=== PATIENT | female | born 1970 | race Caucasian/White ===

== ENCOUNTER → 2016-07-21 | Outpatient (CLI) | payer BC ==
[~2016-07-21] MED LIST: ATOR-22 PO; CHOL20009 PO; CYAN100020 PO; GLC500 PO; INSPMPHMLG SQ; LEVO112T4 PO; LIRA18IN SQ; LISI5TAB3 PO; LVMI SQ; MTR600X PO; MULT-506 PO; NVLNI SQ; VALA1TAB PO
== END | disposition home or self-care (01) ==
LOC: C.LABSPEC 13:41
PROVIDERS: ATTEND Dermatology
DX: B35.3 Tinea pedis (principal)

== ENCOUNTER → 2016-08-27 | Outpatient (CLI) | payer BC ==
[2016-08-27 16:47] LABS: ALT/SGPT 51 U/L (12-78); BLOOD UREA NITROGEN 11 mg/dl (7-18); BUN/CREATININE RATIO 16.6 (10-20); CALCIUM 9.1 mg/dl (8.5-10.1); CARBON DIOXIDE 25 mmol/L (21-32); CHLORIDE 104 mmol/L (98-107); CREATININE 0.67 mg/dl (0.60-1.20); GLUCOSE 233 mg/dl (70-99); SODIUM 138 mmol/L (136-145)
[2016-08-27 16:50] LABS: ALKALINE PHOSPHATASE 50 U/L (45-117); AST/SGOT 30 U/L (15-37)
[2016-08-28 06:16] LABS: ESTIMATED AVERAGE GLUCOSE 154 mg/dl; HA1C FLAG Normal (Normal)
== END | disposition home or self-care (01) ==
LOC: C.LAB 15:42
PROVIDERS: ATTEND Nurse Practitioner Adult Health
DX: I10 Essential (primary) hypertension (principal); E11.9 Type 2 diabetes mellitus without complications; M79.1 Myalgia

== ENCOUNTER → 2016-12-01 | Outpatient (CLI) | payer BC ==
[2016-12-01 10:16] LABS: ESTIMATED AVERAGE GLUCOSE 154 mg/dl; HA1C FLAG Normal (Normal)
== END | disposition home or self-care (01) ==
LOC: C.LAB 11:49
PROVIDERS: ATTEND Nurse Practitioner Adult Health
DX: E11.9 Type 2 diabetes mellitus without complications (principal); E55.9 Vitamin D deficiency, unspecified

== ENCOUNTER → 2017-03-05 | Outpatient (CLI) | payer BC ==
[2017-03-05 15:15] LABS: ALT/SGPT 36 U/L (12-78); BLOOD UREA NITROGEN 12 mg/dl (7-18); BUN/CREATININE RATIO 16.4 (10-20); CALCIUM 9.4 mg/dl (8.5-10.1); CARBON DIOXIDE 26 mmol/L (21-32); CHLORIDE 105 mmol/L (98-107); CHOLESTEROL 137 mg/dl (0-200); CREATININE 0.72 mg/dl (0.60-1.20); GLUCOSE 219 mg/dl (70-99); POTASSIUM 4.1 mmol/L (3.5-5.1); SODIUM 139 mmol/L (136-145)
[2017-03-05 15:26] LABS: ALB/GLOB RATIO 1.1 (0.9-2); ALKALINE PHOSPHATASE 51 U/L (45-117); AST/SGOT 21 U/L (15-37); CHOLESTEROL/HDL RATIO 2.9; HDL CHOLESTEROL 47 mg/dl; LDL CHOLESTEROL CALCULATED 47 mg/dl; THYROID STIMULATING HORMONE 0.586 uIu/ml (0.300-4.500); TRIGLYCERIDES 217 mg/dl (0-150); VERY LOW DENSITY LIPOPROT CALC 43 mg/dl
[2017-03-06 06:01] LABS: ESTIMATED AVERAGE GLUCOSE 151 mg/dl; HA1C FLAG Normal (Normal)
== END | disposition home or self-care (01) ==
LOC: C.LAB 11:08
PROVIDERS: ATTEND Nurse Practitioner Adult Health
DX: E11.9 Type 2 diabetes mellitus without complications (principal); E78.5 Hyperlipidemia, unspecified; E03.9 Hypothyroidism, unspecified

== ENCOUNTER → 2017-06-29 | Outpatient (CLI) | payer BC ==
[2017-06-30 06:06] LABS: HEMOGLOBIN A1C 7.5 % (4.5-5.6)
== END | disposition home or self-care (01) ==
LOC: C.LAB 10:17
PROVIDERS: ATTEND Nurse Practitioner Adult Health
DX: E11.9 Type 2 diabetes mellitus without complications (principal); E78.5 Hyperlipidemia, unspecified; E03.9 Hypothyroidism, unspecified; E55.9 Vitamin D deficiency, unspecified

== ENCOUNTER → 2017-10-27 | Outpatient (CLI) | payer BC ==
[2017-10-27 13:16] LABS: HEMOGLOBIN A1C 6.6 % (4.5-5.6)
== END | disposition home or self-care (01) ==
LOC: C.LAB 11:41
PROVIDERS: ATTEND Nurse Practitioner Adult Health
DX: I10 Essential (primary) hypertension (principal); E11.9 Type 2 diabetes mellitus without complications

== ENCOUNTER 2019-03-27 04:17 | Inpatient (IN) ==
[2019-03-27] MEDS ORDERED: KETOROLAC TROMETHAMINE 15 MG/ML VIAL IV STA (04:31)
[2019-03-27] MEDS ORDERED: METOCLOPRAMIDE HCL INJ 5 MG/ML 2 ML VIAL IV STA (04:31)
[2019-03-27] MEDS ORDERED: DiphenhydrAMINE HCL 50 MG/ML VIAL IV STA (04:31)
[2019-03-27] MEDS ORDERED: SODIUM CHLORIDE 0.9% 500 ML IV STA (04:31)
--- NOTE | 2019-03-27 04:41 | Emergency Department Note ---
History of Present Illness General Chief complaint: Kidney Stone Stated complaint: R FLANK PAIN, KIDNEY STONE History of Present Illness Maximum Pain Intensity: 8 This 48-year-old presents to the ER complaining of severe right flank and lower abdominal pain who is a known kidney stone Location: Right flank and abdomen Quality: Sharp Severity: Severe Duration: Tonight Timing: Patient was diagnosed with a kidney stone 2 weeks ago Context: Pain got much worse and patient came in Modifying factors: better with oxycodone; worse with nothing Patient saw Dr. Holloway and was told she had to stop her diet pill in order to get lithotripsy. She has a scheduled for Wednesday. Patient's pain became so severe she came in tonight. This woke her from sleep. This is her first time with a kidney stone. Patient has appointment next week to follow-up for ovarian abnormality seen on CAT scan. She had a hysterectomy. Patient denies chest pain, dyspnea, urinary symptoms, fever, chills. Home Medications Home Medications Medication Instructions Recorded Confirmed Type atorvastatin 20 mg tablet 20 mg PO HS tab 01/23/19 03/27/19 History cholecalciferol (vitamin D3) 5,000 5,000 units PO DAILY cap 01/23/19 03/27/19 History unit capsule cyanocobalamin (vit B-12) 500 mcg 500 mcg PO DAILY tab 01/23/19 03/27/19 History tablet dulaglutide 1.5 mg/0.5 mL 1.5 mg SQ WEEKLY ml 01/23/19 03/27/19 History subcutaneous pen injector insulin glargine (U-300) conc. 300 80 units SQ HS ml 01/23/19 03/27/19 History unit/mL (1.5 mL) subcutaneous pen insulin lispro (U- 100) 100 See Rx Instructions SQ .COMPLEX ml 01/23/19 03/27/19 History unit/mL subcutaneous pen levothyroxine 75 mcg tablet 75 mcg PO 6XWK tab 01/23/19 03/27/19 History lisinopril 2.5 mg tablet 2.5 mg PO QAM tab 01/23/19 03/27/19 History metformin 1,000 mg tablet 1,000 mg PO BID #1 tab 01/23/19 03/27/19 History valacyclovir 1 gram tablet 1,000 mg PO Q12H PRN tab 01/23/19 03/27/19 History insulin NPH isophane U-100 human 30 units SQ QPM #30 ml 03/10/19 03/27/19 Rx 100 unit/mL (3 mL) subcutaneous pen ibuprofen 800 mg PO Q6H PRN 03/11/19 03/27/19 History ondansetron 4 mg PO Q4H PRN #8 tab 03/11/19 03/27/19 Rx oxycodone 5 - 10 mg PO Q6H PRN #14 tab 03/11/19 03/27/19 Rx phentermine 15 mg PO QAM 03/23/19 03/27/19 History Allergies Allergy/AdvReac Type Severity Reaction Status Date / Time No Known Allergies Allergy Verified 03/27/19 05:04 Past Med/Surg History Medical History Dyslipidemia (Acute) Hypertension (Acute) Hypothyroidism (Acute) Type 2 diabetes mellitus, with long-term current use of insulin (Acute) iddm Vitamin D deficiency (Acute) Chronic back pain hx Kidney stones Sleep apnea cpap Surgical History H/O abdominoplasty and panniculectomy with incisional hernia repair History of hysterectomy History of total left hip replacement History of total right hip replacement S/P left inguinal hernia repair S/P partial hysterectomy Family History Father Diabetes Cancer Mother Hypertension Social History Preferred Language: Italian Communication Ability: Effective Display Decorator Required: No Beliefs That Will Affect Care: None marital status: Current Living Situation: Spouse current occupational status: employed Feels Safe at Home: Yes Smoking Status: Never smoker Second Hand Exposure: No ; Hx Alcohol Use: Yes Alcohol type: beer and wine Hx Substance Use: No Review of Systems All systems reviewed & are unremarkable except as noted in HPI & below Physical Exam Vital Signs Vital Signs - 24 hr 03/27/19 04:20 03/27/19 05:54 Temperature 36.8 C Temperature Source Oral Sepsis Recent Fever Within 48 Hours No Sepsis New/Unexplained Change in Mental Status No Sepsis Action Taken by Nursing No Action Required Pulse Rate 78 Pulse Rate [Finger] 64 Pulse Rhythm [Finger] Regular Pulse Strength [Finger] Normal Respiratory Rate 20 16 Respiratory Effort / Characteristics Non-Labored Spontaneous Respiratory Depth Normal Respiratory Pattern Regular Blood Pressure 161/98 H Blood Pressure [Left Radial Artery] 137/86 Blood Pressure Mean 119 Blood Pressure Mean [Left Radial Artery] 103 Pulse Oximetry 96 96 Oxygen Delivery Method Room Air Room Air VITALS: Vitals are noted on the nurse's note and reviewed by myself. Vital signs stable. GENERAL: Pleasant female who appears in pain, in no acute distress, nondiaphoretic, well-developed well-nourished. SKIN: Capillary reflex less than 2 seconds. HEENT: Normocephalic. PERRLA. EOMI. Nares patent. Mucous membranes moist. Neck is supple without nuchal rigidity. HEART: Regular rate and rhythm without murmurs gallops or rubs. LUNGS: Clear to auscultation bilaterally without wheezes, rales or rhonchi. No retractions or accessory muscle use. ABDOMEN: Positive bowel sounds x 4. Normal tympanic percussion. Soft, minimally tender suprapubic region, without masses or organomegaly. Lloyd sign negative. No guarding or rebound tenderness. No CVA tenderness MUSCULOSKELETAL: No gross musculoskeletal defects. NEURO: Patient was alert and oriented to person place and time. Normal sensation to light and sharp touch. No focal neurological deficits. Course Administered Medications Discontinued Medications Diphenhydramine HCl (Benadryl) 25 mg IV NOW STA Stop: 03/27/19 04:32 Last Admin: 03/27/19 04:56 Dose: 25 mg Documented by: [id number] Sodium Chloride (Nss) 500 mls @ 999 mls/hr IV .Q31M STA Stop: 03/27/19 05:01 Last Admin: 03/27/19 04:52 Dose: 999 mls/hr Documented by: [id number] Ketorolac Tromethamine (Toradol) 10 mg IV ONE STA Stop: 03/27/19 04:32 Last Admin: 03/27/19 04:56 Dose: 10 mg Documented by: [id number] Metoclopramide HCl (Reglan) 10 mg IV NOW STA Stop: 03/27/19 04:32 Last Admin: 03/27/19 04:56 Dose: 10 mg Documented by: [id number] Medical Decision Making Medical Records Attestation: I reviewed the patient's medical records. Home Medications Current Medication List: was personally reviewed by me Laboratory Data Attestation: I reviewed the patient's lab results. Result diagrams: 03/27/19 04:47 03/27/19 04:47 Lab Results 03/27/19 03/27/19 03/27/19 Range/Units 04:47 04:47 04:47 WBC 7.92 (4.8-10.8) K/uL RBC 4.27 (4.2-5.4) M/uL Hgb 12.3 (12.0-16.0) g/dL Hct 36.7 L (37-47) % MCV 85.9 (80-100) fL MCH 28.8 (25-34) pg MCHC 33.5 (32-36) g/dL RDW Std Deviation 43.3 (36.4-46.3) fL RDW Coeff of Mathew 13.8 (11.5-14.5) % Plt Count 206 (130-400) K/uL MPV 10.7 H (7.4-10.4) fL Sodium 139 (136-145) mmol/L Potassium (3.5-5.1) mmol/L Chloride 105 (98-107) mmol/L Carbon Dioxide 27 (21-32) mmol/L Anion Gap 7.0 (3-11) BUN 19 H (7-18) mg/dl Creatinine 0.94 (0.6-1.2) mg/dl Est Cr Clr Drug Dosing 102.6 ml/min Est GFR ( Amer) 84.3 Est GFR (Non-Af Amer) 72.8 BUN/Creatinine Ratio 20.2 H (10-20) Glucose 132 H (70-99) mg/dl Calcium 9.1 (8.5-10.1) mg/dl Total Bilirubin 0.5 (0.2-1) mg/dl AST (15-37) U/L ALT 32 (12-78) U/L Alkaline Phosphatase 52 (45-117) U/L Total Protein 7.4 (6.4-8.2) gm/dl Albumin 3.7 (3.4-5.0) gm/dl Globulin 3.7 (2.5-4.0) gm/dl Albumin/Globulin Ratio 1.0 (0.9-2) Urine Color Yellow Urine Appearance Clear (Clear) Urine pH 5.0 (4.5-7.5) Ur Specific [place] 1.018 (1.000-1.030) Urine Protein Negative (Negative) POC Urine Protein (Negative) Urine Glucose (UA) Negative (Negative) POC Ur Glucose (UA) (Normal) Urine Ketones Negative (Negative) POC Urine Ketones (Negative) Urine Blood Trace H (Negative) POC Urine Blood (Negative) Urine Nitrite Negative (Negative) POC Urine Nitrite (Negative) Urine Bilirubin Negative (Negative) POC Urine Bilirubin (Negative) Urine Urobilinogen Negative (Negative) POC Urine Urobilinogen (Normal) Ur Leukocyte Esterase Trace H (Negative) POC U Leukocyte Esteras (Negative) Urine WBC (Auto) 5-10 H (0-5) /hpf Urine RBC (Auto) 5-10 H (0-4) /hpf U Hyaline Cast (Auto) 1-5 (0-5) /lpf U Epithel Cells (Auto) 20-30 H (0-5) /lpf Urine Bacteria (Auto) Negative (Negative) 03/27/19 Range/Units 04:47 WBC (4.8-10.8) K/uL RBC (4.2-5.4) M/uL Hgb (12.0-16.0) g/dL Hct (37-47) % MCV (80-100) fL MCH (25-34) pg MCHC (32-36) g/dL RDW Std Deviation (36.4-46.3) fL RDW Coeff of Mathew (11.5-14.5) % Plt Count (130-400) K/uL MPV (7.4-10.4) fL Sodium (136-145) mmol/L Potassium (3.5-5.1) mmol/L Chloride (98-107) mmol/L Carbon Dioxide (21-32) mmol/L Anion Gap (3-11) BUN (7-18) mg/dl Creatinine (0.6-1.2) mg/dl Est Cr Clr Drug Dosing ml/min Est GFR ( Amer) Est GFR (Non-Af Amer) BUN/Creatinine Ratio (10-20) Glucose (70-99) mg/dl Calcium (8.5-10.1) mg/dl Total Bilirubin (0.2-1) mg/dl AST (15-37) U/L ALT (12-78) U/L Alkaline Phosphatase (45-117) U/L Total Protein (6.4-8.2) gm/dl Albumin (3.4-5.0) gm/dl Globulin (2.5-4.0) gm/dl Albumin/Globulin Ratio (0.9-2) Urine Color Urine Appearance (Clear) Urine pH (4.5-7.5) Ur Specific [place] (1.000-1.030) Urine Protein (Negative) POC Urine Protein Trace H (Negative) Urine Glucose (UA) (Negative) POC Ur Glucose (UA) Normal (Normal) Urine Ketones (Negative) POC Urine Ketones Negative (Negative) Urine Blood (Negative) POC Urine Blood Trace H (Negative) Urine Nitrite (Negative) POC Urine Nitrite Negative (Negative) Urine Bilirubin (Negative) POC Urine Bilirubin Negative (Negative) Urine Urobilinogen (Negative) POC Urine Urobilinogen Normal (Normal) Ur Leukocyte Esterase (Negative) POC U Leukocyte Esteras Negative (Negative) Urine WBC (Auto) (0-5) /hpf Urine RBC (Auto) (0-4) /hpf U Hyaline Cast (Auto) (0-5) /lpf U Epithel Cells (Auto) (0-5) /lpf Urine Bacteria (Auto) (Negative) Imaging Data Attestation: I personally reviewed and interpreted this imaging study as follows: MDM Narrative Prior records/ancillary studies reviewed. Triage Nursing notes reviewed. Additional history obtained from the family. The patient's history was concerning for right flank pain. Differential diagnosis: Etiologies such as renal colic, appendicitis, diverticulitis, mesenteric ischemia, aortic pathology, infections, inflammatory bowel disease, PUD, biliary pathology, UTI, as well as others were entertained. Physical examination findings: As above. ER treatment provided: Toradol, Reglan, Benadryl, IV fluids On reassessment the patient felt better. Diagnostic interpretation by me: The labs revealed no leukocytosis. Urinalysis revealed hematuria. There was no sign of UTI. Imaging studies: US RENAL: Moderate right hydronephrosis. No left hydronephrosis. A radiopaque shadowing/obstructing calculus is not seen although the majority of the uterus are not imaged. No definite renal masses. Bladder is unremarkable as imaged although not completely distended. Radiologist: Ward Hall M.D. US PELVIC/ENDOVAG: Comparison with CT abdomen pelvis dated 03/22/19. Right ovary is not well seen. Left ovary contains what appears to be a hemorrhagic cyst with no internal blood flow measuring 4.2 x 3.3 x 2.9 cm. Blood flow demonstrated to the left ovary which measures 5.6 x 3.6 x 4.1 cm. No adnexal masses. Couple of cervical fibroids or similar structures are suspected as there is solid appearance with internal blood flow. The larger lesion measures 1.9 cm. Radiologist: Ward Hall M.D. Patient: BRE ROMAN Date: 03/22/19 MR#: [id number]: [id number] [facility] Acct ID:[id number]: Date: 1970[facility] Zip[facility] [place] [address] Age: 48Location: CT Sex: F Room/Bed: Att Phy: Kayleigh SandersDiagnosis: KIDNEY STONE Nicolasa Phy: Kayleigh Sanderservice Date: 03/22/19 Fam Phy:Interpreting Phy: Isaiah Lara MD Admit Phy: Ordering Phy: Kayleigh Sanders cc: ~ CT abd pelvis IV con only CLINICAL HISTORY: 48 years-old Female presenting with KIDNEY STONE, recent proximal right ureteral calculus with right hydronephrosis, follow-up. TECHNIQUE: Multidetector CT of the abdomen and pelvis was performed after the administration of intravenous contrast. IV contrast: 93 mL of Optiray 320. One or more dose lowering techniques were used consistent with the principles of ALARA (as low as reasonably achievable), including automatic exposure control, mA or kV adjustment to individual patient size, and/or use of iterative reconstruction. COMPARISON: 03/11/2019. CT DOSE (mGy.cm): The estimated cumulative dose is 1230.74 mGycm. FINDINGS: Brand Designer topogram: Unremarkable. Lung bases: Normal heart size. No pericardial or pleural effusion. Minimal dependent changes likely atelectasis. Granuloma noted in the lingula. Liver: Enlarged measuring 21.7 cm in maximal sagittal dimension.. Density consistent with moderate to severe hepatic steatosis. No focal lesion. Patent hepatic vasculature. Biliary: No intrahepatic or extrahepatic biliary ductal dilatation. Gallbladder contains gallstones. Pancreas: Normal. Spleen: Normal. Adrenal glands: Normal. Kidneys and ureters: Moderate pelvocaliectasis of the right kidney with a slightly delayed perfusion of the right kidney. The right kidney is also enlarged with moderate perinephric fat stranding. The right ureter is dilated to the level of the nonobstructing mid right ureteral 6 mm calculus. This has progressed from the prior exam slightly. No additional ureteral calculus. No other renal calculi identified. No left hydronephrosis or hydroureter. Bladder: Bladder grossly normal though evaluation degraded by streak artifact arising from the hip arthroplasties. Pelvic organs: Uterus surgically absent though evaluation of the pelvis is degraded by streak artifact. Complex 5.7 cm left adnexal lesion predominantly cystic and likely ovarian in origin similar to prior exam. Right ovary normal. Bowel: Normal appendix. No bowel obstruction. Peritoneal cavity: No free fluid or intraperitoneal gas. Lymph nodes: No enlarged lymph nodes in the abdomen or pelvis. Vasculature: Aorta and IVC patent and normal in caliber. Abdominal wall: Nonspecific fat infiltration in the inferior anterior abdominal wall similar prior exam. Musculoskeletal: Bilateral total hip arthroplasties with extensive regional streak artifact in the pelvis. Degenerative changes of the spine. IMPRESSION: 1. Slight interval progression of the obstructing 6 mm calculus in the right ureter, now located in the mid right ureter. Persistent moderate right hydroureteronephrosis. No additional renal or ureteral calculus. 2. Complex left adnexal lesion likely ovarian in etiology. A benign, borderline, or malignant lesion is not excluded. Further evaluation with pelvic ultrasound is again recommended. This does not appear to have been performed between now and the prior CT at the end of February. 3. Hepatomegaly and hepatic steatosis. 4. Cholelithiasis. The report will be called/faxed according to standard departmental protocol. Electronically signed by: Isaiah Lara M.D. 03/22/2019 3:16 PM Consultation: A consultation was placed with Dr[facility]. The case was discussed and diagnostics were reviewed. The patient was evaluated in the ER for further treatment. Medicine requested that I notify urology and I did inform Dr. Brantley about this patient. It appears that the patient has isolated renal colic from a right sided stone. Patient still in moderate amount of pain. Medicine was consulted. Patient is agreeable treatment plan of admission. Patient does not tolerate narcotics well. She is requesting nonnarcotic medication. By the evaluation outlined above emergent etiologies such as appendicitis, diverticulitis, mesenteric ischemia, aortic pathology, infections, inflammatory bowel disease, PUD, biliary pathology, UTI, as well as others were deemed relatively unlikely. The pt informed about the findings as listed above. All questions were answered and pleased with the treatment. The chart was completed utilizing BATS Speech voice recognition software. Grammatical errors, random word insertions, pronoun errors, and incomplete sentences are an occassional consequence of this system due to software limitations, ambient noise, and hardware issues. Any formal questions or concerns about the content, text, or information contained within the body of this dictation should be directly addressed to the physician legal administrative assistant for clarification. Impression & Plan Intractable pain, Renal colic on right side, Ureterolithiasis Discharge Plan Visit Data Chief Complaint: Kidney Stone Stated Complaint: R FLANK PAIN, KIDNEY STONE ED Provider: Juancarlos Dukes ED Midlevel Provider: Radha Vargas Discharge Problem: Intractable pain, Renal colic on right side, Ureterolithiasis Patient Disposition: Being Evaluated by Hospitalist Condition: Good Forms Stand Alone Forms: My [employer] Prescriptions Prescriptions: No Action Humulin N NPH Insulin KwikPen 100 unit/mL (3 mL) insulin pen 30 units SQ QPM Qty: 30 RF: 3 atorvastatin 20 mg tablet 20 mg PO HS RF: 0 insulin lispro [Humalog KwikPen Insulin] 100 unit/mL insulin pen See Patient Comments SQ .COMPLEX RF: 0 levothyroxine 75 mcg tablet 75 mcg PO [id number] RF: 0 lisinopril 2.5 mg tablet 2.5 mg PO QAM RF: 0 metformin 1,000 mg tablet 1,000 mg PO BID Qty: 1 RF: 0 Trulicity 1.5 mg/0.5 mL pen injector 1.5 mg SQ WEEKLY RF: 0 valacyclovir 1 gram tablet 1,000 mg PO Q12H PRN (Reason: Cold Sores) RF: 0 cyanocobalamin (vitamin B-12) 500 mcg tablet 500 mcg PO DAILY RF: 0 cholecalciferol (vitamin D3) 5,000 unit capsule 5,000 units PO DAILY RF: 0 Toujeo SoloStar U-300 Insulin 300 unit/mL (1.5 mL) insulin pen 80 units SQ HS RF: 0 phentermine 15 mg capsule 15 mg PO QAM RF: 0 ibuprofen 200 mg Tablet 800 mg PO Q6H PRN (Reason: Pain) RF: 0 ondansetron 4 mg tablet,disintegrating 4 mg PO Q4H PRN (Reason: nausea and vomiting) Qty: 8 RF: 0 oxycodone 5 mg tablet 5 - 10 mg PO Q6H PRN (Reason: pain) Qty: 14 RF: 0 Referrals Referrals: Staci Cisneros DO [Primary Care Provider] -
[2019-03-27 04:52] LABS: POC Urine Bilirubin Negative (Negative); POC Urine Blood Trace (Negative); POC Urine Glucose Normal (Normal); POC Urine Ketones Negative (Negative); POC Urine Leukocytes Negative (Negative); POC Urine Nitrite Negative (Negative); POC Urine Protein Trace (Negative); POC Urine Urobilinogen Normal (Normal)
[2019-03-27 04:56] LABS: Hematocrit (blood only) 36.7 % (37-47); Hemoglobin 12.3 g/dL (12.0-16.0); Mean Corpuscular Hemoglobin 28.8 pg (25-34); Mean Corpuscular Hgb Conc 33.5 g/dL (32-36); Mean Corpuscular Volume 85.9 fL (80-100); Mean Platelet Volume 10.7 fL (7.4-10.4); Platelet Count 206 K/uL (130-400); RDW Coefficient of Variation 13.8 % (11.5-14.5); RDW Standard Deviation 43.3 fL (36.4-46.3); Red Blood Count 4.27 M/uL (4.2-5.4); White Blood Count 7.92 K/uL (4.8-10.8)
[2019-03-27 04:59] LABS: Appearance Urine Clear (Clear); Bacteria Urine Automated Negative (Negative); Bilirubin Urine Negative (Negative); Blood Urine Trace (Negative); Color Urine Yellow; Epithelial Cell Urine Auto 20-30 /lpf (0-5); Glucose Urine UA Negative (Negative); Ketones Urine Negative (Negative); Leukocyte Esterase Urine Trace (Negative); Nitrite Urine Negative (Negative); Protein Urine Negative (Negative); Specific Gravity Urine 1.018 (1.000-1.030); Urobilinogen Urine Negative (Negative)
[2019-03-27 05:31] LABS: Albumin Level 3.7 gm/dl (3.4-5.0); BUN Creatinine Ratio 20.2 (10-20); Bilirubin,Total 0.5 mg/dl (0.2-1); Calcium 9.1 mg/dl (8.5-10.1); Creatinine Clr Calc Pharmacy 102.6 ml/min; Est GFR (African American) 84.3; Est GFR (Non-African American) 72.8; Globulin 3.7 gm/dl (2.5-4.0); Total Protein 7.4 gm/dl (6.4-8.2)
[2019-03-27] MEDS ORDERED: ACETAMINOPHEN 1,000 MG/100 ML VIAL IV STA (05:34)
--- NOTE | 2019-03-27 07:15 | Ultrasound Report ---
RENAL ULTRASOUND CLINICAL HISTORY: right flank pain, known stone COMPARISON STUDY: CT of the abdomen and pelvis and KUB March 22, 2019. TECHNIQUE: Sonography of the kidneys and the urinary bladder was performed. FINDINGS: Right kidney measures 13.2 x 7.8 x 6.4 cm and the left kidney measures 11.6 x 6.2 x 5.4 cm. Moderate right hydronephrosis is noted. No right ureteral calculus is identified although these are often occult by sonography. There is no left hydronephrosis. Ureteral jets were not identified. Bladd er suboptimally assessed on this exam. IMPRESSION: Moderate right hydronephrosis. No ureteral calculus identified although these are often occult by son ography. Electronically signed by: Heber Merino M.D. 03/27/2019 7:13 AM
--- NOTE | 2019-03-27 07:29 | Ultrasound Report ---
PELVIC ULTRASOUND CLINICAL HISTORY: pelvic mass on CT/pain COMPARISON STUDY: CT of the abdomen and pelvis March 22, 2019. Pelvic ultrasound January 05, 2008. TECHNIQUE: Transabdominal and transvaginal sonography of the pelvis was performed. FINDINGS: The uterus is surgically absent. The right ovary was not visualized. Note is made of a 1.9 x 1.4 x 1.6 cm hypoechoic focus along the right aspect of the cervix. This contains color flow. There is an adjacent 1.7 x 1.1 x 1.3 cm similar-appearing hypoechoic focus which contains color flow. Thes e favor small fibroids. The left ovary measures 5.6 x 3.6 x 4.1 cm and contains a 4.2 cm hypoechoic l esion without definite color flow. This corresponds to the finding on CT of March 22, 2019. There is color flow within the left ovary. IMPRESSION: 1. 4.2 cm hypoechoic left ovarian lesion. The sonographic appearance is nonspecific and differential considerations include hemorrhagic cyst, endometrioma and ovarian neoplasm. A follow-up pelvic ultras ound in 6 weeks is recommended to ensure resolution. These recommendations will be called/faxed to [facility] ordering provider at time of dictation. 2. Several small hypoechoic lesions along the right aspect of the cervix which may reflect small fibr oids. 3. Nonvisualization of the right ovary. Electronically signed by: Heber Merino M.D. 03/27/2019 7:28 AM
[2019-03-27] MEDS ORDERED: POLYETHYLENE (MIRALAX) 17 GM PACK PO PRN (08:07)
[2019-03-27] MEDS ORDERED: ONDANSETRON INJ 2 MG/ML 2 ML VIAL IV PRN (08:07)
[2019-03-27] MEDS ORDERED: ACETAMINOPHEN 325 MG TAB PO PRN (08:07)
[2019-03-27] MEDS ORDERED: HYDROmorphone INJ 0.5 MG/0.5 ML SYR IV PRN (08:10)
--- NOTE | 2019-03-27 08:26 | History & Physical Report ---
Date of Service March 27, 2019 Assessment & Plan (1) Hydronephrosis concurrent with and due to calculi of kidney and ureter: Flomax, pain control, antiemetics PRN, IVF, Urology consult (2) Adnexal mass: Uncertain etiology. Will consult ANTI TANK MISSILEMAN to assist with further investigation as needed. (3) Type 2 diabetes mellitus, with long-term current use of insulin: Hold all home insulin and proceed with basal bolus insulin therapy per scale written. A1C pending (4) Hypothyroidism: Cont home synthroid (5) DVT prophylaxis: SCDs for now with possible pending Urology procedure. Will wait for recommendations. NPO until Uro recs. Full Code Dispo-to Med/Surg History of Present Illness Chief Complaint: R flank pain Primary Care Provider: Staci Cisneros DO This is a 48yo F with a PMH of DM II, HLD, hypothyroidism and mild FRANCOISE on CPAP who presents with progressive right sided flank pain x 2 weeks. Developed right-sided pain described as intermittent spasms from right flank radiating to back initially starting 2 weeks ago. Was seen in the emergency department and found to have right ureteral calculus results in moderate right hydronephrosis and was discharged with oxycodone for pain and outpatient urology follow-up. Pain improved for the next week and a half but patient presented back in the ED last Wednesday due to similar painful symptoms. Followed up with [facility] urology on 03/23 and was scheduled for outpatient lithotripsy the following Wednesday. Procedure was initially postponed due to patient taking phentermine for weight loss. Anesthesia wanted patient to be off of medication for at least 5 days prior to procedure. Last evening, right-sided flank pain was worse and was not resolved with home oxycodone during the night, per patient. Endorses associated nausea but denies fever, chills, vomiting, dysuria, diarrhea or constipation. No lightheadedness, visual changes, chest pain or shortness of breath. Right renal ultrasound with moderate right hydronephrosis. No ureteral calculus identified although these are often occult by sonography. Of note, also was noted to have L ovarian lesion of cystic appearance on Ct abd/pelvis performed on 03/11. Has obgyn follow up scheduled for later this week. Pelvic ultrasound performed in ED this morning reveals 4.2 cm hypoechoic left ovarian lesion with nonspecific appearance. Differential considerations include hemorrhagic cyst, endometrioma and ovarian neoplasm. Allergies Allergy/AdvReac Type Severity Reaction Status Date / Time No Known Allergies Allergy Verified 03/27/19 05:04 Home Medications Home Medications Medication Instructions Recorded Confirmed Type atorvastatin 20 mg tablet 20 mg PO HS tab 01/23/19 03/27/19 History cholecalciferol (vitamin D3) 5,000 5,000 units PO DAILY cap 01/23/19 03/27/19 History unit capsule dulaglutide 1.5 mg/0.5 mL 1.5 mg SQ WEEKLY ml 01/23/19 03/27/19 History subcutaneous pen injector insulin glargine (U-300) conc. 300 80 units SQ HS ml 01/23/19 03/27/19 History unit/mL (1.5 mL) subcutaneous pen insulin lispro (U- 100) 100 See Rx Instructions SQ .COMPLEX ml 01/23/19 03/27/19 History unit/mL subcutaneous pen levothyroxine 75 mcg tablet 75 mcg PO MOTUWETHFRSA@0800 tab 01/23/19 03/27/19 History lisinopril 2.5 mg tablet 2.5 mg PO QAM tab 01/23/19 03/27/19 History metformin 1,000 mg tablet 1,000 mg PO BID #1 tab 01/23/19 03/27/19 History valacyclovir 1 gram tablet 1,000 mg PO Q12H PRN tab 01/23/19 03/27/19 History insulin NPH isophane U-100 human 30 units SQ QPM #30 ml 03/10/19 03/27/19 Rx 100 unit/mL (3 mL) subcutaneous pen ibuprofen 800 mg PO Q6H PRN 03/11/19 03/27/19 History ondansetron 4 mg PO Q4H PRN #8 tab 03/11/19 03/27/19 Rx oxycodone 5 - 10 mg PO Q6H PRN #14 tab 03/11/19 03/27/19 Rx phentermine 15 mg PO QAM 03/23/19 03/27/19 History cyanocobalamin (vitamin B-12) 1,000 mcg PO DAILY 03/27/19 03/27/19 History Past Med/Surg History Medical History Sleep apnea (Chronic) cpap Dyslipidemia (Chronic) Hypothyroidism (Chronic) Type 2 diabetes mellitus, with long-term current use of insulin (Chronic) iddm Vitamin D deficiency (Chronic) Surgical History H/O abdominoplasty (Chronic) and panniculectomy with incisional hernia repair History of hysterectomy (Chronic) History of total left hip replacement (Chronic) History of total right hip replacement (Chronic) S/P left inguinal hernia repair (Chronic) S/P partial hysterectomy (Chronic) Family History Father Diabetes Cancer Mother Hypertension Social History Preferred Language: Vincentian Communication Ability: Effective Anesthesiologist Required: No Beliefs That Will Affect Care: None marital status: Current Living Situation: Spouse current occupational status: employed Other Information That Helps Us Care for You: No Feels Safe at Home: Yes Safety Concerns: Feels Safe At This Time Smoking Status: Never smoker Second Hand Exposure: No ; Hx Alcohol Use: Yes Alcohol type: beer and wine Alcohol type Comment: social Alcohol Intake Frequency: Weekly Hx Substance Use: No Review of Systems Review of Systems: At least ten systems reviewed and negative except as noted in the HPI. Physical Exam Physical Exam: General Appearance: WD/WN, vitals as above, NAD, sitting up in bed, conversing easily, obese Head: normocephalic, atraumatic Eyes: normal inspection, PERRL, conjunctivae normal, anicteric sclerae ENT: external ear and nose normal, oropharynx normal Neck: trachea midline, no thyromegaly normal visual inspection Respiratory: lungs clear to auscultation, no wheeze, rales, rhonchi. Normal insp/exp effort, no accessory muscle use Cardiovascular: regular rate, rhythm, no murmur, normal peripheral pulses. Vessels: no JVD or carotid bruit Chest: normal inspection of chest Abdomen/GI: normal bowel sounds, soft, nontender, no hepatosplenomegaly. + R flank pain with radiation to back : + R CVA tenderness Extremities/Musculoskelatal: no cyanosis or clubbing, extremities motor strength 5/5 Neurologic: PERRL, EOMI, accommodation nl, no face palsy, no dysarthria CN's II-XI intact bilaterally and moves all extremities Psychiatric: A+Ox3, euthymic affect Skin: no rashes, normal color, warm/dry Results & Data Vital Signs (Past 12 Hours) Vital Signs Temp Pulse Pulse Resp BP BP Pulse Ox 03/27/19 07:34 64 18 129/91 95 03/27/19 06:45 63 20 133/92 96 03/27/19 05:54 64 16 137/86 96 03/27/19 04:20 36.8 C 78 20 161/98 H 96 Laboratory Results Short CBC 03/27/19 Range/Units 04:47 WBC 7.92 (4.8-10.8) K/uL Hgb 12.3 (12.0-16.0) g/dL Hct 36.7 L (37-47) % Plt Count 206 (130-400) K/uL BMP 03/27/19 04:47 Sodium 139 Potassium Chloride 105 Carbon Dioxide 27 BUN 19 H Creatinine 0.94 Glucose 132 H Calcium 9.1 Liver Function 03/27/19 Range/Units 04:47 Total Bilirubin 0.5 (0.2-1) mg/dl AST (15-37) U/L ALT 32 (12-78) U/L Alkaline Phosphatase 52 (45-117) U/L Albumin 3.7 (3.4-5.0) gm/dl Urine 03/27/19 Range/Units 04:47 Urine Color Yellow Urine Appearance Clear (Clear) Urine pH 5.0 (4.5-7.5) Ur Specific [place] 1.018 (1.000-1.030) Urine Protein Negative (Negative) Urine Glucose (UA) Negative (Negative) Diagnostic Findings Renal ultrasound: Moderate right hydronephrosis. No ureteral calculus identified although these are often occult by sonography. Pelvic ultrasound: 1. 4.2 cm hypoechoic left ovarian lesion. The sonographic appearance is nonspecific and differential considerations include hemorrhagic cyst, endometrioma and ovarian neoplasm. A follow-up pelvic ultrasound in 6 weeks is recommended to ensure resolution. These recommendations will be called/faxed to the ordering provider at time of dictation. 2. Several small hypoechoic lesions along the right aspect of the cervix which may reflect small fibroids. 3. Nonvisualization of the right ovary. Medications Administered Current Inpatient Medications Acetaminophen (Tylenol) 650 mg PO Q4H PRN PRN Reason: Pain or Fever Stop: 04/26/19 08:06 Hydromorphone HCl (Dilaudid) 0.5 mg IV Q4H PRN PRN Reason: Pain Stop: 04/10/19 08:09 Sodium Chloride (Nss 1000ml) 1,000 mls @ 150 mls/hr IV .Q6H40M SHRUTI Stop: 03/27/19 21:34 Ketorolac Tromethamine (Toradol) 15 mg IV Q8H PRN PRN Reason: pain Stop: 04/01/19 08:09 Ondansetron HCl (Zofran) 4 mg IV Q6H PRN PRN Reason: Nausea Stop: 04/26/19 08:06 Polyethylene Glycol (Miralax Powder Packet) 17 gm PO DAILY PRN PRN Reason: Constipation Stop: 04/26/19 08:06 Tamsulosin HCl (Flomax) 0.4 mg PO QAM SHRUTI Stop: 04/26/19 08:59 Code Status & VTE Plan Code Status full code VTE Prophylaxis Plan VTE Prophylaxis will be ordered: Yes Supervising Physician Co-Signing Physician Notes I have seen and examined the patient and have discussed the case with the provider above. I agree with the assessment and plan as stated. 48-year-old female presented with right ureteral colic secondary to obstructing kidney stone with hydronephrosis. History reported as above. Pain is more controlled with Toradol and oxycodone this morning. Urology to see her and plan for stone removal. Physical exam revealed CVA tenderness on the right with some right lower quadrant abdominal pain but otherwise was unremarkable. ANTI TANK MISSILEMAN consult to determine ovarian mass etiology and need for further work-up. Continue Flomax, IV fluids, n.p.o. after midnight. DO Mau
[2019-03-27] MEDS ORDERED: DEXTROSE 50% 50 ML SYRINGE IV PRN (09:00)
[2019-03-27] MEDS ORDERED: GLUCOSE 40% GEL 15 GM TUBE PO PRN (09:00)
[2019-03-27] MEDS ORDERED: GLUCAGON FOR INJ 1 MG VIAL SQ PRN (09:00)
[2019-03-27] MEDS ORDERED: GLUCOSE 10 TABS/TUBE PO PRN (09:00)
[2019-03-27] MEDS ORDERED: CARBOHYDRATES FOR HYPOGLYCEMIA PO PRN (09:00)
[2019-03-27] MEDS: SODIUM CHLORIDE 0.9% 1000ML 1,000 ML IV SCH ×3 (09:08→23:37)
[2019-03-27] MEDS ORDERED: Nursing to Pharmacy Communication ONE ×3 (09:09→19:28)
[2019-03-27] MEDS: TAMSULOSIN HCL 0.4 MG CAP PO SCH (10:05)
[2019-03-27] MEDS: INSULIN GLARGINE SOLOSTAR 100 UNITS/ML 3 ML PEN SC SCH ×2 (10:05→20:57)
[2019-03-27] MEDS ORDERED: OXYCODONE HCL IR 5 MG TAB (IMMEDIATE RELEASE) PO PRN (11:05)
[2019-03-27] MEDS ORDERED: INSULIN ASPART 100 UNITS/ML 3 ML PEN SC SCH ×2 (11:30)
--- NOTE | 2019-03-27 12:38 | Urology Progress Note ---
Date of Service March 27, 2019 Assessment & Plan (1) Renal colic on right side: 6mm mid right ureteral stone, resulting hydronephrosis and renal colic. Currently scheduled for outpatient ESWL 03/31/19. Currently afebrile, pain controlled with supportive medication. Discussed options. OR schedule does not permit stone treatment today. Patient is agreeable to supportive care today and repeat evaluation tomorrow AM. Okay to provide diet today. NPO at midnight. Subjective 48 YO female with 6mm mid right ureteral calculus. Patient was seen in our outpatient office by Dr. Lopez on 03/23/19 for evaluation, and was scheduled for ESWL on 03/24/19 which was delayed due to patient taking weight loss medication. She is currently rescheduled for outpatient ESWL on Wednesday03/31/19. Reported to ER for evaluation early this AM due to worsening right renal colic. US demonstrates persisting right hydronephrosis. No fevers/chills. Review of Systems Review of Systems: Per HPI. Physical Exam Physical Exam: NAD. Resp effort normal. No JVD. Abd nondistended. A&Ox3, appropriate affect. Results & Data Vital Signs (Past 12 Hours) Vital Signs Temp Pulse Pulse Resp BP BP BP 03/27/19 09:01 37 C 62 16 143/87 H 03/27/19 07:34 64 18 129/91 03/27/19 06:45 63 20 133/92 03/27/19 05:54 64 16 137/86 03/27/19 04:20 36.8 C 78 20 161/98 H Pulse Ox 03/27/19 09:01 97 03/27/19 07:34 95 03/27/19 06:45 96 03/27/19 05:54 96 03/27/19 04:20 96 PG Care Time/CCT Total # of Minutes Spent Total Time Spent with Patient: Total time spent is greater than 50% in coordination of care (as documented) at patient's floor/unit and/or counseling patient:
[2019-03-27] MEDS: KETOROLAC TROMETHAMINE 15 MG/ML VIAL IV PRN ×2 (13:14→21:08)
[2019-03-27] MEDS ORDERED: INFLUENZA VIRUS QUAD VACCINE 0.5 ML SYR IM ONE (14:00)
[2019-03-27] MEDS ORDERED: INFLUENZA ADMINISTRATION CHARGE ONE (14:00)
[2019-03-27] MEDS: INSULIN ASPART 100 UNITS/ML 3 ML PEN SC SCH ×3 (14:12→21:32)
[2019-03-27] MEDS: ATORVASTATIN 20 MG TAB PO SCH (20:57)
--- NOTE | 2019-03-27 23:03 | Consultation Report ---
DATE OF CONSULTATION: 03/27/2019 REASON FOR ADMISSION: Left ovarian cyst. REQUESTED BY: Etta León DO REASON FOR CONSULT: Left ovarian cyst. HISTORY OF PRESENT ILLNESS: The patient is a 48-year-old female 0, para 0, status post supracervical hysterectomy in 2013 for abnormal bleeding and fibroids done by laparotomy by Dr. Alonso, ovaries were left in. The patient presents to the hospital here after presenting to the ER with abdominal pain and signs and symptoms of a kidney stone and renal colic. She was given Toradol and felt better. A urology consult was obtained and the patient was admitted for right flank pain and evaluation for left ovarian mass noted on CT scan when she had the CAT scan done for her kidney pain. PAST SURGICAL HISTORY: Positive for abdominal hysterectomy in 2013, abdominoplasty last year at [facility], hernia repair after the hysterectomy, and right and left total hip replacement. SOCIAL HISTORY: Denies smoking, alcohol or drug use. REVIEW OF SYSTEMS: Negative. FAMILY HISTORY: Noncontributory. PAST MEDICAL HISTORY: Positive for dyslipidemia, hypothyroidism, hypertension, type 2 diabetes on insulin, and a history of incisional hernia. ALLERGIES: No known drug allergies. Ultrasound report done upon admission reveals a 4.2 cm hypoechoic left ovarian lesion, nonspecific, possible hemorrhagic cyst versus endometrioma versus endometriosis. Pelvic CT and abdominal CT revealed complex left adnexal cyst, possible benign versus malignant, possible hepatomegaly and hepatic steatosis and cholelithiasis noted and a 6 mm right kidney stone in the ureter is present. Moderate right hydroureteronephrosis noted. No other lesions noted. LABORATORIES: White blood cell count 7.92, hemoglobin 12.3, hematocrit 36.7. Urine with trace blood. PHYSICAL EXAMINATION: VITAL SIGNS: blood pressure 143/87, her pulse 62, respiratory rate 16, afebrile. GENERAL: The patient is comfortable in appearance. She is alert and oriented x3. ABDOMEN: Her abdomen is obese. She has an abdominoplasty scar noted. She is nontender in the left lower quadrant. PELVIC: No pelvic exam was done, this is deferred. ASSESSMENT: Probable benign ovarian lesion. PLAN: We will obtain CA-125, CEA and CA 19-9. Recommend repeating ultrasound in probably 3-6 months' timeframe to evaluate the ovarian lesion at this time. We will follow as needed. Follow up in the office post discharge from the hospital.
[2019-03-28] MEDS: SODIUM CHLORIDE 0.9% 1000ML 1,000 ML IV SCH ×3 (05:14→21:12)
[2019-03-28 06:05] LABS: Hematocrit (blood only) 34.3 % (37-47); Hemoglobin 11.2 g/dL (12.0-16.0); Mean Corpuscular Hemoglobin 28.4 pg (25-34); Mean Corpuscular Hgb Conc 32.7 g/dL (32-36); Mean Corpuscular Volume 86.8 fL (80-100); Mean Platelet Volume 9.8 fL (7.4-10.4); Platelet Count 177 K/uL (130-400); RDW Coefficient of Variation 13.9 % (11.5-14.5); RDW Standard Deviation 44.6 fL (36.4-46.3); Red Blood Count 3.95 M/uL (4.2-5.4)
[2019-03-28] MEDS ORDERED: Nursing to Pharmacy Communication ONE ×2 (06:09→16:55)
[2019-03-28] MEDS: INSULIN ASPART 100 UNITS/ML 3 ML PEN SC SCH ×4 (06:15→21:10)
[2019-03-28 06:42] LABS: BUN Creatinine Ratio 20.5 (10-20); Calcium 8.1 mg/dl (8.5-10.1); Creatinine Clr Calc Pharmacy 114.9 ml/min; Est GFR (African American) 96.6; Est GFR (Non-African American) 83.3; Potassium 3.9 mmol/L (3.5-5.1)
--- NOTE | 2019-03-28 07:45 | Urology Progress Note ---
Date of Service March 28, 2019 Assessment & Plan (1) Renal colic on right side: 48yo F with 6mm distal right ureteral stone, moderate hydro Last KUB inconclusive visibility on 03/22. Plan to repeat KUB this AM. If stone not visible, will plan for repeat CT vs discharge with outpatient m onitoring with plan to CT in 1-2 weeks if doing okay. If visible, will plan for ESWL on Wednesday as originally scheduled. Continue to strain all urine. Keep NPO for now. Pt understands and agreeable to plan of care. Subjective 48 YO female with 6mm mid right ureteral calculus, moderate hydronephrosis Pt states pain was controlled last evening with toradol alone. Pt denies hematuria,dysuria. Straining all urine, denies stone passage. Denies fever/chills. Denies n/v. Review of Systems Review of Systems: All systems reviewed & are unremarkable except as noted in HPI & below Physical Exam Constitutional: no acute distress and not ill appearing Eyes: no nystagmus ENMT: Ears: no hearing impairment Neck: trachea midline Respiratory: no respiratory distress and no cough Cardiovascular: Vessels: no JVD Chest (Breasts): Chest: normal inspection of chest Gastrointestinal (Abdomen): Inspection/Auscultation: abdomen not distended and no abdominal edema Percussion/Palpation: abdomen soft; abdomen nontender slightly tender to right lower abdomen Musculoskeletal: Head/Neck/Chest: normocephalic and head atraumatic Skin: no rashes, warm and dry Neurologic: awake; not confused and not obtunded Psychiatric: Orientation: alert and oriented x 3 Eye Contact: good eye contact Affect: no depressed affect Lymphatic: no lymphadenopathy and no lymphedema Results & Data Vital Signs (Past 12 Hours) Vital Signs Temp Pulse Resp BP Pulse Ox 03/28/19 07:11 36.6 C 77 16 157/87 H 97 03/27/19 23:32 36.7 C 71 18 155/84 H 96 PG Care Time/CCT Total # of Minutes Spent Total Time Spent with Patient: Total time spent is greater than 50% in coordination of care (as documented) at patient's floor/unit and/or counseling patient:
--- NOTE | 2019-03-28 08:13 | XRay Report ---
XR KUB/Abdomen 1 view CLINICAL HISTORY: right distal stone visibility nephrocalcinosis COMPARISON STUDY: 03/22/2019 FINDINGS: The soft tissues, psoas shadows, renal outlines and intestinal gas pattern appear normal. T here is no evidence for bowel obstruction. No abnormal abdominal calcifications are seen. The right ureteral calculus previously described is not identified. Nonobstructive bowel pattern. IMPRESSION: No evidence for a urinary tract calculus based on routine imaging evaluation. The above report was generated using voice recognition software. It may contain grammatical, syntax or spelling errors. Electronically signed by: Higinio Worrell M.D. 03/28/2019 8:12 AM
[2019-03-28] MEDS: ACETAMINOPHEN 1,000 MG/100 ML VIAL IV PRN ×2 (08:49→18:05)
[2019-03-28] MEDS: INSULIN GLARGINE SOLOSTAR 100 UNITS/ML 3 ML PEN SC SCH ×2 (09:03→21:09)
[2019-03-28] MEDS: LEVOTHYROXINE SODIUM 75 MCG TABLET PO SCH (09:07)
[2019-03-28] MEDS: CYANOCOBALAMIN 500 MCG TABLET (VITAMIN B-12) PO SCH (09:07)
[2019-03-28] MEDS: CHOLECALCIFEROL 1,000 UNITS TAB PO SCH (09:08)
[2019-03-28] MEDS: TAMSULOSIN HCL 0.4 MG CAP PO SCH (09:08)
--- NOTE | 2019-03-28 09:57 | Ultrasound Report ---
PELVIC ULTRASOUND CLINICAL HISTORY: pelvic mass on CT/pain COMPARISON STUDY: CT of the abdomen and pelvis March 22, 2019. Pelvic ultrasound January 05, 2008. TECHNIQUE: Transabdominal and transvaginal sonography of the pelvis was performed. FINDINGS: The uterus is surgically absent. The right ovary was not visualized. Note is made of a 1.9 x 1.4 x 1.6 cm hypoechoic focus along the right aspect of the cervix. This contains color flow. There is an adjacent 1.7 x 1.1 x 1.3 cm similar-appearing hypoechoic focus which contains color flow. Thes e favor small fibroids. The left ovary measures 5.6 x 3.6 x 4.1 cm and contains a 4.2 cm hypoechoic l esion without definite color flow. This corresponds to the finding on CT of March 22, 2019. There is color flow within the left ovary. IMPRESSION: 1. 4.2 cm hypoechoic left ovarian lesion. The sonographic appearance is nonspecific and differential considerations include hemorrhagic cyst, endometrioma and ovarian neoplasm. A follow-up pelvic ultras ound in 6 weeks is recommended to ensure resolution. These recommendations will be called/faxed to [facility] ordering provider at time of dictation. 2. Several small hypoechoic lesions along the right aspect of the cervix which may reflect small fibr oids. 3. Nonvisualization of the right ovary. Electronically signed by: Heber Merino M.D. 03/27/2019 7:28 AM
--- NOTE | 2019-03-28 14:25 | Anesthesiology Consultation ---
Date of Service March 28, 2019 Assessment & Plan (1) Encounter for pre-operative examination: Chart Review Chart Review: Acceptable Risk for Surgery and Patient NOT seen in Pre Admission Testing Consults Requested none History Surgery Operation Date: 03/28/19 15:20 Proposed Procedures p Cystoscopy, Right Retrograde Pyelogram, Ureteroscopy, Laser Lithotripsy, Stent Placement, Possible Dilation - Issac Brantley MD Height/Weight Height: 5 ft 8 in Weight: 121.5 kg Allergies Allergy/AdvReac Type Severity Reaction Status Date / Time No Known Allergies Allergy Verified 03/27/19 05:04 Medications Home Medications Medication Instructions Recorded Confirmed Last Taken atorvastatin 20 mg tablet 20 mg PO HS tab 01/23/19 03/27/19 03/11/19 cholecalciferol (vitamin D3) 5,000 5,000 units PO DAILY cap 01/23/19 03/27/19 03/11/19 unit capsule dulaglutide 1.5 mg/0.5 mL 1.5 mg SQ WEEKLY ml 01/23/19 03/27/19 03/05/19 subcutaneous pen injector insulin glargine (U-300) conc. 300 80 units SQ HS ml 01/23/19 03/27/19 03/11/19 unit/mL (1.5 mL) subcutaneous pen insulin lispro (U- 100) 100 See Rx Instructions SQ .COMPLEX ml 01/23/19 03/27/19 03/11/19 unit/mL subcutaneous pen levothyroxine 75 mcg tablet 75 mcg PO MOTUWETHFRSA@0800 tab 01/23/19 03/27/19 03/11/19 lisinopril 2.5 mg tablet 2.5 mg PO QAM tab 01/23/19 03/27/19 03/11/19 metformin 1,000 mg tablet 1,000 mg PO BID #1 tab 01/23/19 03/27/19 03/11/19 valacyclovir 1 gram tablet 1,000 mg PO Q12H PRN tab 01/23/19 03/27/19 Unknown insulin NPH isophane U-100 human 30 units SQ QPM #30 ml 03/10/19 03/27/19 03/11/19 100 unit/mL (3 mL) subcutaneous pen ibuprofen 800 mg PO Q6H PRN 03/11/19 03/27/19 03/11/19 12:00 ondansetron 4 mg PO Q4H PRN #8 tab 03/11/19 03/27/19 Unknown oxycodone 5 - 10 mg PO Q6H PRN #14 tab 03/11/19 03/27/19 Unknown phentermine 15 mg PO QAM 03/23/19 03/27/19 03/21/19 0700 cyanocobalamin (vitamin B-12) 1,000 mcg PO DAILY 03/27/19 03/27/19 Unknown Active Medications Generic Name Dose Route Start Last Admin Trade Name Freq PRN Reason Stop Dose Admin Atorvastatin Calcium 20 mg 03/27/19 21:00 03/27/19 20:57 Lipitor PO 04/26/19 20:59 20 mg HS SHRUTI Administration Cyanocobalamin 1,000 mcg 03/28/19 09:00 03/28/19 09:07 Vitamin B-12 PO 04/27/19 08:59 1,000 mcg DAILY SHRUTI Administration Sodium Chloride 1,000 mls @ 150 mls/hr 03/27/19 08:15 03/28/19 14:22 Nss 1000ml IV 04/26/19 08:14 0 mls/hr .Q6H40M SHRUTI Infusion Acetaminophen 1,000 mg in 100 mls @ 400 mls/hr 03/27/19 10:39 03/28/19 09:10 Ofirmev IV 04/26/19 10:38 Infused Q8H PRN Infusion Pain or Fever Insulin Aspart 0 units 03/28/19 06:00 03/28/19 13:15 Novolog Flexpen SC 04/27/19 05:59 Not Given Q6 SHRUTI Insulin Glargine 30 units 03/27/19 09:00 03/28/19 09:03 Lantus Solostar Pen SC 04/26/19 08:59 Not Given BID SHRUTI Levothyroxine Sodium 75 mcg 03/28/19 08:00 03/28/19 09:07 Synthroid PO 04/27/19 07:59 75 mcg MOTUWETHFRSA@0800 SHRUTI Administration Lisinopril 2.5 mg 03/28/19 09:00 03/28/19 09:08 Zestril PO 04/27/19 08:59 2.5 mg QAM SHRUTI Administration Tamsulosin HCl 0.4 mg 03/27/19 09:00 03/28/19 09:08 Flomax PO 04/26/19 08:59 0.4 mg QAM SHRUTI Administration Vitamin D 5,000 units 03/28/19 09:00 03/28/19 09:08 Vitamin D3 PO 04/27/19 08:59 5,000 units DAILY SHRUTI Administration Additional Notes: Last dose phentermine was 03/21/2019 Past Medical History Medical History Sleep apnea (Chronic) cpap Obesity, Class II, BMI 35-39.9 (Acute) Dyslipidemia (Chronic) Hypothyroidism (Chronic) Type 2 diabetes mellitus, with long-term current use of insulin (Chronic) iddm Vitamin D deficiency (Chronic) Hypertension Exercise / Class Metabolic Activity II 4-5 Yardwork/Stairs/Walk up hill Past Family History Family History Father Diabetes Cancer Mother Hypertension Past Surgical History Surgical History H/O abdominoplasty (Chronic) and panniculectomy with incisional hernia repair History of hysterectomy (Chronic) History of total left hip replacement (Chronic) History of total right hip replacement (Chronic) S/P left inguinal hernia repair (Chronic) S/P partial hysterectomy (Chronic) Past Anesthesia History No Hx of Anesthesia Complications and No Family Hx of Anesthesia Complications History of PONV No Hx of PONV and No Hx of Motion Sickness Social History Smoking Status: Never smoker Do You Dip or Chew Tobacco: No Hx Alcohol Use: Yes Alcohol type: beer and wine alcohol intake frequency: a few times a month Hx Substance Use: No substance use type: does not use Physical Exam Vital Signs Last Vital Signs Temp 36.6 C 03/28/19 07:11 Pulse 77 03/28/19 07:11 Resp 16 03/28/19 07:11 BP 157/87 H 03/28/19 07:11 Pulse Ox 97 03/28/19 07:11 Testing Laboratory Results 03/28/19 05:52 03/28/19 05:52 Urine Color Yellow 03/27/19 04:47 Urine Appearance Clear (Clear) 03/27/19 04:47 Urine pH 5.0 (4.5-7.5) 03/27/19 04:47 Ur Specific [place] 1.018 (1.000-1.030) 03/27/19 04:47 Urine Protein Negative (Negative) 03/27/19 04:47 Urine Glucose (UA) Negative (Negative) 03/27/19 04:47 Urine Ketones Negative (Negative) 03/27/19 04:47 Urine Nitrite Negative (Negative) 03/27/19 04:47 Ur Leukocyte Esterase Trace (Negative) H 03/27/19 04:47 Urine WBC (Auto) 5-10 /hpf (0-5) H 03/27/19 04:47 Urine RBC (Auto) 5-10 /hpf (0-4) H 03/27/19 04:47 U Hyaline Cast (Auto) 1-5 /lpf (0-5) 03/27/19 04:47 U Epithel Cells (Auto) 20-30 /lpf (0-5) H 03/27/19 04:47 Urine Bacteria (Auto) Negative (Negative) 03/27/19 04:47 03/28/19 03/28/19 13:13 06:05 POC Glucose 75 89 Electrocardiogram Date: 03/23/19 Findings: + NSR @ (71) Normal sinus rhythm Incomplete right bundle branch block Borderline ECG When compared with ECG of 19-DEC-2013 14:13, No significant change was found Confirmed by Fidencio Castillo ([id number]) on 03/23/2019 8:08:13 PM Chest X-Ray Date: 03/23/19 TWO VIEW CHEST CLINICAL HISTORY: Preoperative examination. FINDINGS: PA and lateral chest radiographs are obtained. No prior studies are available for comparison at the time of dictation. The cardiomediastinal silhouette is unremarkable. The lungs and pleural spaces are clear. There is no pneumothorax. The bony thorax appears intact. IMPRESSION: No active disease in the chest.
[2019-03-28] MEDS ORDERED: fentaNYL citrate 100 MCG/2 ML VIAL ONE (14:46)
[2019-03-28] MEDS ORDERED: MIDAZOLAM HCL 1 MG/ML 2ML VIAL ONE (14:46)
[2019-03-28] MEDS ORDERED: LIDOCAINE HCL 2% 2 ML VIAL/AMP(20MG/ML) INFIL ONE (14:48)
[2019-03-28] MEDS ORDERED: PROPOFOL IV EMULSION 10 MG/ML 20 ML VIAL IV ONE (14:48)
[2019-03-28] MEDS ORDERED: CIPROFLOXACIN 400 MG/200 ML BAG IV STA (15:00)
[2019-03-28] MEDS ORDERED: IOTHALAMATE MEGLUMINE II 17.2% 250 ML VIAL ONE (15:01)
[2019-03-28] MEDS ORDERED: CIPROFLOXACIN 400MG / 200ML D5W IV ONE (15:03)
--- NOTE | 2019-03-28 16:07 | Fluoroscopy Report ---
FL KUB HISTORY: 48 years-old Female CYSTO cystourethrogram COMPARISON: KUB 03/28/2019 TECHNIQUE: 2 spot fluoroscopic images of the right abdomen were obtained utilizing 20.4 seconds fluor oscopy time FINDINGS: The proximal portion of a right ureteral stent appears to be in satisfactory positioning. The distal portion of the stent is not imaged. IMPRESSION: Fluoroscopic assistance as above. Please see procedural report for further details. The above report was generated using voice recognition software. It may contain grammatical, syntax o r spelling errors. Electronically signed by: Jonathan Rodrigez M.D. 03/28/2019 4:05 PM
--- NOTE | 2019-03-28 16:08 | Operative Report ---
PG Post Operative Report Pre & Post Diagnosis Operation Date: 03/28/19 15:20 Pre-Op Diagnosis: Right renal colic, hydronephrosis Post-Op Diagnosis: Right renal colic, hydronephrosis I identified the patient and participated in the time-out.: Yes Procedure Operation Date: 03/28/19 15:20 Actual Procedures p Cystoscopy, Right Ureteroscopy, Laser Lithotripsy, Stent Placement(Right) - Issac Brantley MD Surgeon Fidencio Brantley MD Kiln Mechanic none Estimated Blood Loss 0 Findings Consistent with Post-Op Diagnosis Specimens stone for chemical analysis Description of Procedure The patient was identified in the preopertive holding area, appropriate informed consents were reviewed and completed and the patient was transferred to the operative suite. Upon arrival, appropriate antibiotics and anesthesia were administered and the patient was placed in dorsal lithotomy position and prepped and draped in sterile fashion. To begin the case I passed a 22 Czech cystoscope with 30 degree lens. Inspection of the bladder revealed healthy appearing bladder without any mucosal abnormalities. Ureteral orifices were in orthotopic position. There were no stones within the bladder. I turned my attention of the right ureteral orifice and cannulated with a sensor wire and a 5 Czech open-ended catheter. I felt resistance in the mid ureter but I could not see a visible stone at that time on fluoroscopy. With gentle manipulation I advanced the wire around the presumed stone into the level of the kidney. I then withdrew the 5 Czech open-ended catheter and the cystoscope. I reentered the bladder alongside the wire with a semirigid ureteroscope which was guided into the distal right ureter. I encountered a yellow appearing calculus impacted in the mid ureter. I fractured this with a 270 m laser fiber and I was able to irrigate all the debris out of the ureter. There is minimal residual irritation from the left side of impaction and the remainder of the ureter appeared quite healthy. I placed a 6 Czech by 24 cm double-J ureteral stent with a good curl in the kidney and the bladder. String was attached to her right leg with Steri-Strips. Her bladder was emptied and the case concluded. There were no complications. Stones were sent for chemical analysis. I attest to the content of the Intraoperative Record and any orders documented therein. Any exceptions are noted below.
[2019-03-28] MEDS ORDERED: ONDANSETRON HOME PACK 4MG OD TAB PO PRN (16:51)
[2019-03-28] MEDS ORDERED: INSULIN LISPRO SQ SCH (16:51)
[2019-03-28] MEDS ORDERED: IBUPROFEN 200 MG TAB PO PRN (16:51)
[2019-03-28] MEDS ORDERED: NON-FORMULARY MEDICATION (Dulaglutide [Trulicity] 1.5 MG) SQ SCH (16:51)
[2019-03-28] MEDS ORDERED: ATROPINE SULFATE 0.1 MG/ML 10ML SYR IV PRN (16:56)
[2019-03-28] MEDS ORDERED: ePHEDrine sulfate 50 MG/ML AMP IV PRN (16:56)
[2019-03-28] MEDS ORDERED: fentaNYL citrate 100 MCG/2 ML VIAL IV PRN (16:56)
--- NOTE | 2019-03-28 16:56 | Anesthesiology Progress Note ---
Date of Service March 28, 2019 Anesthesia Post Procedure Vital Signs Vital Signs: Temp Pulse Pulse Resp BP Pulse Ox 03/28/19 16:45 36.9 C 62 14 150/87 H 94 03/28/19 16:30 36.2 C L 60 14 156/85 H 94 03/28/19 16:20 69 14 156/87 H 97 03/28/19 16:10 60 15 154/85 H 100 03/28/19 16:00 36.6 C 62 16 157/98 H 100 03/28/19 14:34 36.5 C 61 18 152/88 H 98 03/28/19 07:11 36.6 C 77 16 157/87 H 97 03/27/19 23:32 36.7 C 71 18 155/84 H 96 Pain Intensity Flank: Pain Intensity: 2 Transfer of Care Handoff Completed per policy Notes Mental Status: alert / awake / arousable Patient Amnestic to Procedure: Yes Nausea / Vomiting: adequately controlled Pain: adequately controlled Airway Patency, RR, SpO2: stable & adequate BP & HR: stable & adequate Hydration State: stable & adequate Anesthetic Complications: no major complications apparent and Pt Satisfied with anesthetic care
--- NOTE | 2019-03-28 17:45 | Hospitalist Progress Note ---
Date of Service March 28, 2019 Assessment & Plan (1) Hydronephrosis concurrent with and due to calculi of kidney and ureter: Flomax, pain control, antiemetics PRN, IVF, Urology with plans to take her for stone removal today. (2) Adnexal mass: Uncertain etiology. Tumor markers are pending, repeat pelvic us and BOND ANALYST follow-up in 6 months. (3) Type 2 diabetes mellitus, with long-term current use of insulin: Hold all home insulin and proceed with basal bolus insulin therapy per scale written. Currently at goal, hold Lantus this am as NPO (4) Hypothyroidism: Cont home synthroid (5) DVT prophylaxis: SCDs with upcoming procedure today. NPO Full Code Dispo-to Med/Surg Etta León DO [facility] Hospitalist Subjective Doing well, pain controlled overnight Going for stone removal procedure today Review of Systems Review of Systems: All systems reviewed & are unremarkable except as noted in HPI & below Physical Exam Physical Exam: General Appearance: WD/WN, vitals as above, NAD Head: normocephalic, atraumatic Eyes: conjunctivae normal, anicteric sclerae ENT: MMM Respiratory: lungs clear to auscultation, no wheeze, rales, rhonchi. Normal insp/exp effort, no accessory muscle use Cardiovascular: regular rate, rhythm, no murmur, no edema Abdomen/GI: normal bowel sounds, soft, nontender, nondistended. +RLQ discomfort, +R CVA tenderness Extremities/Musculoskelatal: strength intact, no gross focal deficits. Neurologic: CN 2-12 grossly intact, no gross focal deficits. Skin: no rashes, normal color, warm/dry Results & Data Vital Signs (Past 12 Hours) Vital Signs Temp Pulse Pulse Resp BP Pulse Ox 03/28/19 17:11 64 16 140/79 94 03/28/19 16:45 36.9 C 62 14 150/87 H 94 03/28/19 16:30 36.2 C L 60 14 156/85 H 94 03/28/19 16:20 69 14 156/87 H 97 03/28/19 16:10 60 15 154/85 H 100 03/28/19 16:00 36.6 C 62 16 157/98 H 100 03/28/19 14:34 36.5 C 61 18 152/88 H 98 03/28/19 07:11 36.6 C 77 16 157/87 H 97 Laboratory Results Short CBC 03/28/19 Range/Units 05:52 WBC 6.10 (4.8-10.8) K/uL Hgb 11.2 L (12.0-16.0) g/dL Hct 34.3 L (37-47) % Plt Count 177 (130-400) K/uL BMP 03/28/19 05:52 Sodium 140 Potassium 3.9 Chloride 110 H Carbon Dioxide 23 BUN 17 Creatinine 0.84 Glucose 87 Calcium 8.1 L Medications Administered Current Inpatient Medications Atorvastatin Calcium (Lipitor) 20 mg PO HS SHRUTI Stop: 04/26/19 20:59 Last Admin: 03/27/19 20:57 Dose: 20 mg Documented by: Atropine Sulfate (Atropine Sulfate) 0.5 mg IV Q1M PRN PRN Reason: PACU Use-HR<40 &/or Bradycardi Stop: 03/28/19 21:56 Cyanocobalamin (Vitamin B-12) 1,000 mcg PO DAILY SHRUTI Stop: 04/27/19 08:59 Last Admin: 03/28/19 09:07 Dose: 1,000 mcg Documented by: Dextrose (Dextrose 50%) 25 - 50 ml IV UD PRN; Protocol PRN Reason: Hypoglycemia Protocol Stop: 04/26/19 08:59 Ephedrine Sulfate (Ephedrine Sulfate) 5 mg IV Q5M PRN PRN Reason: PACU Use Only-SBP<90 mmHg Stop: 03/28/19 21:56 Fentanyl Citrate (Fentanyl Citrate) 25 mcg IV Q5M PRN PRN Reason: PACU Use Only-Pain Stop: 03/28/19 21:56 Glucagon (Glucagen) 1 mg SQ UD PRN; Protocol PRN Reason: Hypoglycemia Protocol Stop: 04/26/19 08:59 Glucose (Dex4 Glucose) 4 - 8 tabs PO UD PRN; Protocol PRN Reason: Hypoglycemia Protocol Stop: 04/26/19 08:59 Glucose (Glucose 40%) 15 - 30 gm PO UD PRN; Protocol PRN Reason: Hypoglycemia Protocol Stop: 04/26/19 08:59 Hydromorphone HCl (Dilaudid) 0.5 mg IV Q4H PRN PRN Reason: Pain Stop: 04/10/19 08:09 Sodium Chloride (Nss 1000ml) 1,000 mls @ 150 mls/hr IV .Q6H40M [facility] Stop: 04/26/19 08:14 Last Infusion: 03/28/19 16:54 Dose: 150 mls/hr Documented by: Acetaminophen (Ofirmev) 1,000 mg in 100 mls @ 400 mls/hr IV Q8H PRN PRN Reason: Pain or Fever Stop: 04/26/19 10:38 Last Infusion: 03/28/19 09:10 Dose: Infused Documented by: Insulin Aspart (Novolog Flexpen) 0 units SC ACHS [facility] Stop: 04/27/19 05:59 Insulin Glargine (Lantus Solostar Pen) 30 units SC BID [facility] Stop: 04/26/19 08:59 Last Admin: 03/28/19 09:03 Dose: Not Given Documented by: Levothyroxine Sodium (Synthroid) 75 mcg PO MOTUWETHFRSA@0800 [facility] Stop: 04/27/19 07:59 Last Admin: 03/28/19 09:07 Dose: 75 mcg Documented by: Lisinopril (Zestril) 2.5 mg PO QAM [facility] Stop: 04/27/19 08:59 Last Admin: 03/28/19 09:08 Dose: 2.5 mg Documented by: Miscellaneous (Carbohydrates For Hypoglycemia) 15 - 30 gm PO UD PRN PRN Reason: Hypoglycemia Treatment Stop: 04/26/19 08:59 Ondansetron HCl (Zofran) 4 mg IV Q6H PRN PRN Reason: Nausea Stop: 04/26/19 08:06 Oxycodone HCl (Roxicodone Immediate Rel) 5 mg PO Q6H PRN PRN Reason: Pain Stop: 04/10/19 11:04 Polyethylene Glycol (Miralax Powder Packet) 17 gm PO DAILY PRN PRN Reason: Constipation Stop: 04/26/19 08:06 Tamsulosin HCl (Flomax) 0.4 mg PO QAM [facility] Stop: 04/26/19 08:59 Last Admin: 03/28/19 09:08 Dose: 0.4 mg Documented by: Vitamin D (Vitamin D3) 5,000 units PO DAILY [facility] Stop: 04/27/19 08:59 Last Admin: 03/28/19 09:08 Dose: 5,000 units Documented by:
[2019-03-28] MEDS ORDERED: METFORMIN HCL 500 MG TAB PO SCH (21:00)
[2019-03-28] MEDS ORDERED: INSULIN GLARGINE U U SQ SCH (21:00)
[2019-03-28] MEDS ORDERED: INSULIN NPH ISOPH U HUMAN SQ SCH (21:00)
[2019-03-28] MEDS: ATORVASTATIN 20 MG TAB PO SCH (21:12)
[2019-03-29] MEDS: SODIUM CHLORIDE 0.9% 1000ML 1,000 ML IV SCH ×2 (03:36→10:32)
[2019-03-29] MEDS: CHOLECALCIFEROL 1,000 UNITS TAB PO SCH (08:54)
[2019-03-29] MEDS: CYANOCOBALAMIN 500 MCG TABLET (VITAMIN B-12) PO SCH (08:54)
[2019-03-29] MEDS: TAMSULOSIN HCL 0.4 MG CAP PO SCH (08:54)
[2019-03-29] MEDS: LEVOTHYROXINE SODIUM 75 MCG TABLET PO SCH (08:54)
[2019-03-29] MEDS: INSULIN GLARGINE SOLOSTAR 100 UNITS/ML 3 ML PEN SC SCH (08:55)
[2019-03-29] MEDS: INSULIN ASPART 100 UNITS/ML 3 ML PEN SC SCH (08:56)
[2019-03-29] MEDS ORDERED: PHENTERMINE 15 MG PO SCH (09:00)
--- NOTE | 2019-03-29 09:03 | Hospitalist Progress Note ---
Date of Service March 29, 2019 Assessment & Plan (1) Hydronephrosis concurrent with and due to calculi of kidney and ureter: S/P cystoscopy, right ureteroscopy, laser lithotripsy and stent placement by Dr. Brantley POD #1 pt tolerated procedure well pain free, afebrile received Pre op IV cipro will discuss with urology need to continue Flomax (2) Adnexal mass: Uncertain etiology. Seen by Gasoline Plant Operator Dr. Saucedo Tumor markers are pending repeat pelvic us and FRETTED INSTRUMENT REPAIRER follow-up in 3-6 months (3) Type 2 diabetes mellitus, with long-term current use of insulin: A1C 7.1 continue home regimen at discharge encourage life style modifications (4) Hypothyroidism: continue levothyroxine (5) DVT prophylaxis: SCDS Full Code Disposition: Discharge to home today Follow up: PCP Dr. Cisneros at discharge along with approp FRETTED INSTRUMENT REPAIRER and Urology follow up Supervising Physician Co-Signing Physician Notes I have seen and examined the patient and have discussed the case with the provider above. I agree with the assessment and plan as stated. I examined her prior to her procedure and she had persistent right lower quadrant and right flank pain but was otherwise doing well. Heart and lung exam were normal. As this is an afternoon case we will plan for another overnight stay at home in a.m. barring any complications. DO Fredrick León Patient was seen and examined in room 377-2. Follow up R ureteral stone s/p cystoscopy, R ureteroscopy, laser Lithotripsy and stent placement by Dr. Brantley. She feels great this morning. Overall slept well. Denies f/c/s, chest pain, sob, n/v/d, flank pain, dysuria, hematuria, increased freq/urination. Appetite is good. She is ready for discharge today. Review of Systems Review of Systems: All systems reviewed & are unremarkable except as noted in HPI & below Physical Exam Physical Exam: Gen: WD/WN, F NAD, A&O x3 HEENT: Normocephalic, atraumatic, conjunctivae moist, sclerae anicteric, mucous membranes moist. Lung: Clear to Auscultation bilaterally, no wheezes/rales/rhonchi Heart: Regular rate, regular rhythm, no murmurs, rubs, or gallops Abdomen: obese abd, Soft, NT, ND +BS x 4, no CVA tenderness Extremities: No edema Skin: Warm, no rash, negative turgor. Results & Data Vital Signs (Past 12 Hours) Vital Signs Temp Pulse Resp BP BP Pulse Ox 03/29/19 07:15 36.8 C 62 18 138/82 96 03/29/19 03:52 36.7 C 63 18 123/77 94 03/28/19 23:22 36.7 C 62 18 128/70 96 Medications Administered Atorvastatin Calcium (Lipitor) 20 mg PO HS SHRUTI Stop: 04/26/19 20:59 Last Admin: 03/28/19 21:12 Dose: 20 mg Documented by: [id number] Admin: 03/27/19 20:57 Dose: 20 mg Documented by: [id number] Cyanocobalamin (Vitamin B-12) 1,000 mcg PO DAILY [facility] Stop: 04/27/19 08:59 Last Admin: 03/29/19 08:54 Dose: 1,000 mcg Documented by: [id number] Admin: 03/28/19 09:07 Dose: 1,000 mcg Documented by: [id number] Sodium Chloride (Nss 1000ml) 1,000 mls @ 150 mls/hr IV .Q6H40M [facility] Stop: 04/26/19 08:14 Last Admin: 03/29/19 03:36 Dose: 150 mls/hr Documented by: [id number] Infusion: 03/29/19 03:36 Dose: 150 mls/hr Documented by: [id number] Admin: 03/28/19 21:12 Dose: 150 mls/hr Documented by: [id number] Infusion: 03/28/19 20:59 Dose: 150 mls/hr Documented by: [id number] Infusion: 03/28/19 16:54 Dose: 150 mls/hr Documented by: [id number] Infusion: 03/28/19 14:22 Dose: 0 mls/hr Documented by: [id number] Admin: 03/28/19 11:47 Dose: 150 mls/hr Documented by: [id number] Infusion: 03/28/19 11:47 Dose: 150 mls/hr Documented by: [id number] Infusion: 03/28/19 05:43 Dose: 150 mls/hr Documented by: [id number] Admin: 03/28/19 05:14 Dose: 150 mls/hr Documented by: [id number] Infusion: 03/28/19 05:14 Dose: 150 mls/hr Documented by: [id number] Admin: 03/27/19 23:37 Dose: 150 mls/hr Documented by: [id number] Infusion: 03/27/19 23:37 Dose: 150 mls/hr Documented by: [id number] Admin: 03/27/19 17:09 Dose: 150 mls/hr Documented by: [id number] Infusion: 03/27/19 15:49 Dose: 150 mls/hr Documented by: [id number] Admin: 03/27/19 09:08 Dose: 150 mls/hr Documented by: [id number] Acetaminophen (Ofirmev) 1,000 mg in 100 mls @ 400 mls/hr IV Q8H PRN PRN Reason: Pain or Fever Stop: 04/26/19 10:38 Last Infusion: 03/28/19 18:22 Dose: 0 mls/hr Documented by: [id number] Admin: 03/28/19 18:05 Dose: 400 mls/hr Documented by: [id number] Infusion: 03/28/19 09:10 Dose: 0 mls/hr Documented by: [id number] Admin: 03/28/19 08:49 Dose: 400 mls/hr Documented by: [id number] Insulin Aspart (Novolog Flexpen) 0 units SC ACHS [facility] Stop: 04/27/19 05:59 Last Admin: 03/29/19 08:56 Dose: 3 units Documented by: [id number] Cosigned by: [id number] Admin: 03/28/19 21:10 Dose: 1 units Documented by: [id number] Cosigned by: [id number] Admin: 03/28/19 18:18 Dose: 4 units Documented by: [id number] Cosigned by: [id number] Insulin Glargine (Lantus Solostar Pen) 30 units SC BID [facility] Stop: 04/26/19 08:59 Last Admin: 03/29/19 08:55 Dose: 30 units Documented by: [id number] Cosigned by: [id number] Admin: 03/28/19 21:09 Dose: 30 units Documented by: [id number] Cosigned by: [id number] Admin: 03/28/19 09:03 Dose: Not Given Documented by: [id number] Cosigned by: [id number] Admin: 03/27/19 20:57 Dose: 30 units Documented by: [id number] Cosigned by: [id number] Admin: 03/27/19 10:05 Dose: 15 units Documented by: [id number] Cosigned by: [id number] Levothyroxine Sodium (Synthroid) 75 mcg PO MOTUWETHFRSA@0800 [facility] Stop: 04/27/19 07:59 Last Admin: 03/29/19 08:54 Dose: 75 mcg Documented by: [id number] Admin: 03/28/19 09:07 Dose: 75 mcg Documented by: [id number] Lisinopril (Zestril) 2.5 mg PO QAM [facility] Stop: 04/27/19 08:59 Last Admin: 03/29/19 08:54 Dose: 2.5 mg Documented by: [id number] Admin: 03/28/19 09:08 Dose: 2.5 mg Documented by: [id number] Tamsulosin HCl (Flomax) 0.4 mg PO QAM [facility] Stop: 04/26/19 08:59 Last Admin: 03/29/19 08:54 Dose: 0.4 mg Documented by: [id number] Admin: 03/28/19 09:08 Dose: 0.4 mg Documented by: [id number] Admin: 03/27/19 10:05 Dose: 0.4 mg Documented by: [id number] Vitamin D (Vitamin D3) 5,000 units PO DAILY [facility] Stop: 04/27/19 08:59 Last Admin: 03/29/19 08:54 Dose: 5,000 units Documented by: [id number] Admin: 03/28/19 09:08 Dose: 5,000 units Documented by: [id number] Discontinued Medications Ciprofloxacin (Cipro) Confirm Administered Dose 400 mg IV .STK-MED ONE Stop: 03/28/19 15:04 Last Admin: 03/28/19 15:11 Dose: 400 mg Documented by: [id number] Diphenhydramine HCl (Benadryl) 25 mg IV NOW STA Stop: 03/27/19 04:32 Last Admin: 03/27/19 04:56 Dose: 25 mg Documented by: [id number] Sodium Chloride (Nss) 500 mls @ 999 mls/hr IV .Q31M [facility] Stop: 03/27/19 05:01 Last Infusion: 03/27/19 06:42 Dose: 0 mls/hr Documented by: [id number] Admin: 03/27/19 04:52 Dose: 999 mls/hr Documented by: [id number] Acetaminophen (Ofirmev) 1,000 mg in 100 mls @ 400 mls/hr IV NOW STA Stop: 03/27/19 05:48 Last Admin: 03/27/19 09:08 Dose: Not Given Documented by: [id number] Influenza Virus Vaccine Quadrival (Flucelvax Quad Vaccine) 0.5 ml IM .ONCE ONE Stop: 03/27/19 14:01 Last Admin: 03/27/19 23:38 Dose: Not Given Documented by: [id number] Insulin Aspart (Novolog Flexpen) 0 units SC Q6H [facility] Stop: 04/26/19 11:29 Last Admin: 03/27/19 12:24 Dose: Not Given Documented by: [id number] Cosigned by: [id number] Insulin Aspart (Novolog Flexpen) 0 units SC ACHS [facility] Stop: 04/26/19 11:29 Last Admin: 03/27/19 21:32 Dose: Not Given Documented by: [id number] Cosigned by: [id number] Admin: 03/27/19 18:13 Dose: 12 units Documented by: [id number] Cosigned by: [id number] Admin: 03/27/19 14:12 Dose: 4 units Documented by: [id number] Cosigned by: [id number] Insulin Aspart (Novolog Flexpen) 0 units SC Q6 [facility] Stop: 04/27/19 05:59 Last Admin: 03/28/19 13:15 Dose: Not Given Documented by: [id number] Cosigned by: [id number] Admin: 03/28/19 06:15 Dose: Not Given Documented by: [id number] Cosigned by: [id number] Iothalamate Meglumine (Cysto-Conray Ii) Confirm Administered Dose 250 ml .ROUTE .STK-MED ONE Stop: 03/28/19 15:02 Last Admin: 03/28/19 15:43 Dose: Not Given Documented by: [id number] Ketorolac Tromethamine (Toradol) 10 mg IV ONE STA Stop: 03/27/19 04:32 Last Admin: 03/27/19 04:56 Dose: 10 mg Documented by: [id number] Ketorolac Tromethamine (Toradol) 15 mg IV Q8H PRN PRN Reason: pain Stop: 04/01/19 08:09 Last Admin: 03/27/19 21:08 Dose: 15 mg Documented by: [id number] Admin: 03/27/19 13:14 Dose: 15 mg Documented by: [id number] Metoclopramide HCl (Reglan) 10 mg IV NOW STA Stop: 03/27/19 04:32 Last Admin: 03/27/19 04:56 Dose: 10 mg Documented by: [id number]
--- NOTE | 2019-03-29 10:02 | Discharge Summary ---
Date of Service March 29, 2019 Admission HPI Per Admitting Provider This is a 48yo F with a PMH of DM II, HLD, hypothyroidism and mild FRANCOISE on CPAP who presents with progressive right sided flank pain x 2 weeks. Developed right-sided pain described as intermittent spasms from right flank radiating to back initially starting 2 weeks ago. Was seen in the emergency department and found to have right ureteral calculus results in moderate right hydronephrosis and was discharged with oxycodone for pain and outpatient urology follow-up. Pain improved for the next week and a half but patient presented back in the ED last Wednesday due to similar painful symptoms. Followed up with [facility] urology on 03/23 and was scheduled for outpatient lithotripsy the following Wednesday. Procedure was initially postponed due to patient taking phentermine for weight loss. Anesthesia wanted patient to be off of medication for at least 5 days prior to procedure. Last evening, right-sided flank pain was worse and was not resolved with home oxycodone during the night, per patient. Endorses associated nausea but denies fever, chills, vomiting, dysuria, diarrhea or constipation. No lightheadedness, visual changes, chest pain or shortness of breath. Right renal ultrasound with moderate right hydronephrosis. No ureteral calculus identified although these are often occult by sonography. Of note, also was noted to have L ovarian lesion of cystic appearance on Ct abd/pelvis performed on 03/11. Has obgyn follow up scheduled for later this week. Pelvic ultrasound performed in ED this morning reveals 4.2 cm hypoechoic left ovarian lesion with nonspecific appearance. Differential considerations include hemorrhagic cyst, endometrioma and ovarian neoplasm. Admission Exam Per Admitting Provider General Appearance: WD/WN, vitals as above, NAD, sitting up in bed, conversing easily, obese Head: normocephalic, atraumatic Eyes: normal inspection, PERRL, conjunctivae normal, anicteric sclerae ENT: external ear and nose normal, oropharynx normal Neck: trachea midline, no thyromegaly normal visual inspection Respiratory: lungs clear to auscultation, no wheeze, rales, rhonchi. Normal insp/exp effort, no accessory muscle use Cardiovascular: regular rate, rhythm, no murmur, normal peripheral pulses. Vessels: no JVD or carotid bruit Chest: normal inspection of chest Abdomen/GI: normal bowel sounds, soft, nontender, no hepatosplenomegaly. + R flank pain with radiation to back : + R CVA tenderness Extremities/Musculoskelatal: no cyanosis or clubbing, extremities motor strength 5/5 Neurologic: PERRL, EOMI, accommodation nl, no face palsy, no dysarthria CN's II-XI intact bilaterally and moves all extremities Psychiatric: A+Ox3, euthymic affect Skin: no rashes, normal color, warm/dry Principal Diagnosis Right ureteral stone Right hydronephrosis Left adnexal mass T2DM Discharge Exam Gen: WD/WN, F NAD, A&O x3 HEENT: Normocephalic, atraumatic, conjunctivae moist, sclerae anicteric, mucous membranes moist. Lung: Clear to Auscultation bilaterally, no wheezes/rales/rhonchi Heart: Regular rate, regular rhythm, no murmurs, rubs, or gallops Abdomen: obese abd, Soft, NT, ND +BS x 4, no CVA tenderness Extremities: No edema Skin: Warm, no rash, negative turgor. Discharge Data Allergies Allergy/AdvReac Type Severity Reaction Status Date / Time No Known Allergies Allergy Verified 03/27/19 05:04 Consultations Urology Consult: 1) Renal colic on right side: 48yo F with 6mm distal right ureteral stone, moderate hydro Last KUB inconclusive visibility on 03/22. Plan to repeat KUB this AM. If stone not visible, will plan for repeat CT vs discharge with outpatient monitoring with plan to CT in 1-2 weeks if doing okay. If visible, will plan for ESWL on Wednesday as originally scheduled. Continue to strain all urine. Keep NPO for now. Pt understands and agreeable to plan of care. COMMUNITY PLACEMENT WORKER Consult: Dr. Saucedo ASSESSMENT: Probable benign ovarian lesion. PLAN: We will obtain CA-125, CEA and CA 19-9. Recommend repeating ultrasound in probably 3-6 months' timeframe to evaluate the ovarian lesion at this time. We will follow as needed. Follow up in the office post discharge from the hospital. Procedures Performed Operation Date: 03/28/19 15:20 Actual Procedures p Cystoscopy, Right Ureteroscopy, Laser Lithotripsy,(Right) - Issac Brantley MD s Stent Placement(Right) - Issac Brantley MD Ordered Studies Renal U/S: IMPRESSION: Moderate right hydronephrosis. No ureteral calculus identified although these are often occult by sonography. Pelvis U/S: 1. 4.2 cm hypoechoic left ovarian lesion. The sonographic appearance is nonspecific and differential considerations include hemorrhagic cyst, endometrioma and ovarian neoplasm. A follow-up pelvic ultrasound in 6 weeks is recommended to ensure resolution. These recommendations will be called/faxed to the ordering provider at time of dictation. 2. Several small hypoechoic lesions along the right aspect of the cervix which may reflect small fibroids. 3. Nonvisualization of the right ovary. Transvaginal U/S: PELVIC ULTRASOUND CLINICAL HISTORY: pelvic mass on CT/pain COMPARISON STUDY: CT of the abdomen and pelvis March 22, 2019. Pelvic ultrasound January 05, 2008. TECHNIQUE: Transabdominal and transvaginal sonography of the pelvis was performed. FINDINGS: The uterus is surgically absent. The right ovary was not visualized. Note is made of a 1.9 x 1.4 x 1.6 cm hypoechoic focus along the right aspect of the cervix. This contains color flow. There is an adjacent 1.7 x 1.1 x 1.3 cm similar-appearing hypoechoic focus which contains color flow. These favor small fibroids. The left ovary measures 5.6 x 3.6 x 4.1 cm and contains a 4.2 cm hypoechoic lesion without definite color flow. This corresponds to the finding on CT of March 22, 2019. There is color flow within the left ovary. IMPRESSION: 1. 4.2 cm hypoechoic left ovarian lesion. The sonographic appearance is nonspecific and differential considerations include hemorrhagic cyst, endometrioma and ovarian neoplasm. A follow-up pelvic ultrasound in 6 weeks is recommended to ensure resolution. These recommendations will be called/faxed to the ordering provider at time of dictation. 2. Several small hypoechoic lesions along the right aspect of the cervix which may reflect small fibroids. 3. Nonvisualization of the right ovary. Hospital Course (1) Hydronephrosis concurrent with and due to calculi of kidney and ureter: This is a 48yo F with a PMH of DM II, HLD, hypothyroidism and mild FRANCOISE on CPAP who presents with progressive right sided flank pain x 2 weeks. She presented on 03/27/19 secondary to persistent renal colic. Renal ultrasound revealed persistent moderate right hydronephrosis. Pain was uncontrolled. Urology was consulted and it was agreed to undergo surgical intervention. On 03/28 she underwent cystoscopy, right ureteroscopy, laser lithotripsy and stent placement by Dr. Brantley. She tolerated procedure well. She has been placed on Cipro 500 mg p.o. twice daily x3 days empirically secondary to stent placement. She was also placed on Flomax 0.4 mg daily. Postoperatively she remained stable and afebrile. Also of significance on 03/[address] scan of abdomen and pelvis. Incidentally she was found to have a complex left adnexal lesion likely ovarian etiology. Pelvic ultrasound was recommended for further evaluation. During this admission she underwent pelvic and transvaginal ultrasound. Consistent with 1.2 cm hypoechoic left ovarian lesion. COMMUNITY PLACEMENT WORKER Dr. Saucedo has seen and evaluated the patient. [place] lesion is likely benign. A CA 19 and Ca1 25 and surgeon were sent off. She is recommended to have repeat ultrasound in 3 to 6 months. At time of discharge patient hemodynamically stable and pain-free. (2) Adnexal mass: (3) Type 2 diabetes mellitus, with long-term current use of insulin: A1C 7.1 continue home regimen at discharge encourage life style modifications Total Time Total Time Spent Total Time Spent (In Minutes): 60 minutes Discharge Plan Discharge Items Patient Disposition: Home - Self-Care Reason For Visit: URETERAL COLIC Discharge Diagnosis: Right kidney stone Left Ovarian Lesion Type 2 Diabetes Condition on Discharge: Good Activity: Resume your previous activity Lifting: Gradually increase as tolerated Bathing: No limitations Driving/Machine Use: Resume 1 day after discharge Non-emergency contact: Primary Care Provider and Urologist Call non-emergency contact if: you have any medication questions, your symptoms worsen, your pain is not controlled, your pain is worsening, your pain is unusual for you, your pain is concerning for you, you have a fever and your rectal temperature is above 100.4 Follow-up/Referrals: Judy Diallo [Physician Securities Trader] - 08/22/19 3:30 am (Annual vist/Follow up abn pelvis U/S) Jaimie Schultz MD [Physician] - 04/05/19 10:05 am Diet: Carb Consistent or DM2 Addtl Attending Provider Instructions: New Medications: Cipro 500mg twice daily x 3 days for infection prevention due to stent placement Flomax 0.4mg daily until you follow up with urology SUMMARY OF TEST RESULTS: You were admitted to [facility] on 03/27/19 secondary to obstructing kidney stone in R urinary tract. You underwent surgical intervention and stent placement due to uncontrolled pain. During further work up you were found to have L ovarian lesion. You were seen by gynecology who recommend follow up ultra sound in 3-6 months. Follow up appointments have been arranged for COMMUNITY PLACEMENT WORKER. PENDING TEST RESULTS: Stone analysis is still pending at discharge - you will follow up these results with your urologist Two lab studies CA 19-9 and CA 125 are pending at discharge - you will follow up these results with your COMMUNITY PLACEMENT WORKER Dr. Saucedo RECOMMENDATIONS FOR FOLLOW-UP: Take antibiotic Cipro 500mg twice daily x 3 days for infection prevent for stent placement. Continue to take flomax until discontinued by Urology. Keep all scheduled follow up appointments including primary care, urology and COMMUNITY PLACEMENT WORKER. Stay well hydrated and drink plenty of water or non caffeinated beverages. Continue all other medications as prescribed by your family physician. OTHER INSTRUCTIONS: Seek medical attention if you have: * temperature above 101 * chest pain or trouble breathing * abdominal pain, nausea, vomiting * diarrhea, dark stools or bloody stools * any unanswered questions or concerns Call 911 if symptoms are severe. Please take good care of yourself. Call if you have any questions or problems. You can reach a [facility] hospitalist on duty at [facility] 24 hours a day by calling [phone]. My pager number # is [phone]. Pending Studies at Discharge: Yes Studies:: Pending Studies: Stone Studies CA 19-9 Antigen CA 125 Antigen Stand-Alone Forms: My [facility] Medications and DC Order Prescriptions: New tamsulosin 0.4 mg Capsule 0.4 mg PO QAM 30 Days Qty: 30 RF: 0 ciprofloxacin HCl 500 mg tablet 500 mg PO BID Qty: 9 RF: 0 Continued Humulin N NPH Insulin KwikPen 100 unit/mL (3 mL) insulin pen 30 units SQ QPM Qty: 30 RF: 3 atorvastatin 20 mg tablet 20 mg PO HS RF: 0 insulin lispro [Humalog KwikPen Insulin] 100 unit/mL insulin pen See Patient Comments SQ .COMPLEX RF: 0 levothyroxine 75 mcg tablet 75 mcg PO MOTUWETHFRSA@0800 RF: 0 lisinopril 2.5 mg tablet 2.5 mg PO QAM RF: 0 metformin 1,000 mg tablet 1,000 mg PO BID Qty: 1 RF: 0 Trulicity 1.5 mg/0.5 mL pen injector 1.5 mg SQ WEEKLY RF: 0 valacyclovir 1 gram tablet 1,000 mg PO Q12H PRN (Reason: Cold Sores) RF: 0 cholecalciferol (vitamin D3) 5,000 unit capsule 5,000 units PO DAILY RF: 0 Toujeo SoloStar U-300 Insulin 300 unit/mL (1.5 mL) insulin pen 80 units SQ HS RF: 0 phentermine 15 mg capsule 15 mg PO QAM RF: 0 ibuprofen 200 mg Tablet 800 mg PO Q6H PRN (Reason: Pain) RF: 0 cyanocobalamin (vitamin B-12) 1,000 mcg Tablet 1,000 mcg PO DAILY RF: 0 Discontinued ondansetron 4 mg tablet,disintegrating 4 mg PO Q4H PRN (Reason: nausea and vomiting) Qty: 8 RF: 0 oxycodone 5 mg tablet 5 - 10 mg PO Q6H PRN (Reason: pain) Qty: 14 RF: 0 Discharge Orders: Discharge Order (Routine); Ordered 03/29/19 Ordered By: Cyndy Levy/Other Patient Handouts: Stents Ureteral, Kidney Stones Admission Data Admit Date/Time: 03/27/19 08:05 Attending Provider: Etta León Admit Provider: Etta León Primary Care Provider: Staci Cisneros Other Providers: Davion Benton ; Adolfo Sol I. ; Torrey Saucedo Other Interventions: Discharge Summary Assessment (RN) Last Done: 03/29/19 10:33 DC Date/Time DO NOT enter until pt leaves facility: 03/29/19 11:25 Supervising Physician Co-Signing Physician Notes I have seen and examined the patient and have discussed the case with the provider above. I agree with the assessment and plan as stated. At time of discharge a [id number] examination was performed revealing a hemodynamically stable and afebrile patient with resolution of right flank pain. She was mentating and ablating at baseline and tolerating p.o. Lungs and heart exam were normal with lungs clear to auscultation bilaterally and S1/S2 heard with no evidence of murmurs, gallops, rubs. She will be discharged on medications above and will follow up closely with primary care and urology. DO Mau
--- NOTE | 2019-03-29 11:07 | Urology Progress Note ---
Date of Service March 29, 2019 Assessment & Plan (1) Renal colic on right side: 48yo F POD #1 s/p cysto, URS/LL secondary to 6mm distal right ureteral stone, moderate hydro Doing very well, ready for discharge. Expected clinical course reviewed. Followup appts made for stent removal and f/u with CTY. Okay to discharge home from standpoint with pain control, flomax and cipro 500mg bid x3d. Subjective 48yo F POD #1 s/p URS, LL with stent placement for right distal ureteral stone Doing very well. Slept last night. No major stent irritation. Denies f/c/n/v. Review of Systems Review of Systems: All systems reviewed & are unremarkable except as noted in HPI & below Physical Exam Physical Exam: A&OX3 RRR abd soft, nontender no LE edema Results & Data Vital Signs (Past 12 Hours) Vital Signs Temp Pulse Resp BP BP Pulse Ox 03/29/19 07:15 36.8 C 62 18 138/82 96 03/29/19 03:52 36.7 C 63 18 123/77 94 03/28/19 23:22 36.7 C 62 18 128/70 96
[2019-03-29 16:21] LABS: CA 125 6 U/ML (<35); Cancer Antigen 19-9 21 U/ML (<34)
== END 2019-03-29 11:25 | disposition home or self-care (01) | DRG 694 ==
LOC: ED 04:17 → 3N 08:05

== ENCOUNTER 2023-08-04 05:18 | Observation (INO) ==
--- NOTE | 2023-06-24 15:41 | Anesthesiology Consultation ---
Date of Service June 24, 2023 Assessment & Plan (1) Encounter for pre-operative examination: Plan - check BSG am DOS. - Adryan instructions: Patient informed by PAT RN to stop 7 days prior to surgery. - Outpatient joint assessment: Patient is currently scheduled for inpatient pathway. If re-evaluated and patient/surgeon requests outpatient pathway, patient is acceptable candidate for outpatient joint program from anesthesia standpoint pending surgeon's office assessment of pt motivation/support/completion of same day joint program preop requirements based on available information. - Per hide washer on 06/24/2023: No known infectious disease contacts, current infectious disease symptoms in past 10 days or COVID positive test result in the past 30 days. Chart Review Chart Review: Acceptable Risk for Surgery and Patient seen in Pre Admission Testing Teaching & Discussion Pre-Anesthesia Teaching/Discussion Notes: Instructed NPO after midnight before surgery, except medications with 15 cc of water. Medication instructions provided according to the PAT guidelines. History Surgery Operation Date: 08/04/23 07:00 Proposed Procedures p Left Total Knee Arthroplasty - Jeferson Donnelly MD Height/Weight Height: 5 ft 7.5 in Weight: 104.78 kg Allergies Allergy/AdvReac Type Severity Reaction Status Date / Time No Known Allergies Allergy Verified 06/24/23 14:34 Medications Home Medications Medication Instructions Recorded Confirmed Last Taken cholecalciferol (vitamin D3) 125 5,000 units PO DIRECTED 01/23/19 06/24/23 02/27/23 09:00 mcg (5,000 unit) capsule valacyclovir 1 gram tablet 1,000 mg PO Q12H PRN Cold Sores 01/23/19 06/24/23 09/23/22 cyanocobalamin (vitamin B-12) 1,000 mcg PO QAM 03/27/19 06/24/23 02/27/23 09:00 1,000 mcg tablet lancets 33 gauge (OneTouch Delica ##1 08/01/19 06/24/23 Unknown Lancets) vitamin E (dl, acetate) 180 mg 400 units PO BID 08/01/19 06/24/23 02/27/23 (400 unit) capsule insulin lispro 200 unit/mL (3 mL) 60 unit subcut DAILY 09/16/22 06/24/23 03/02/23 20:30 subcutaneous pen (Humalog KwikPen 20 U-200 Insulin) metformin 1,000 mg tablet 1,000 mg PO BID 90 days #180 tabs 10/12/22 06/24/23 03/02/23 22:00 tirzepatide 15 mg/0.5 mL 15 mg (0.5 mL) subcut Q7D #6 mL 02/05/23 06/24/23 02/21/23 subcutaneous pen injector (Mounjaro) lisinopril 5 mg tablet 5 mg PO QAM 02/25/23 06/24/23 03/02/23 09:00 lwkzcszb-tkj-yoxhuc 5 mg-zeaxanth 1 cap PO QAM 02/25/23 06/24/23 02/28/23 09:00 1 mg-bilberry 7.5 mg-herbal capsule ([employer] Formula) atorvastatin 40 mg tablet 80 mg PO QPM 04/08/23 06/24/23 Unknown docusate sodium 100 mg capsule 100 mg PO BID PRN Constipation 04/08/23 06/24/23 Unknown (Col-Rite) levothyroxine 75 mcg tablet 75 mcg PO DAILY 04/08/23 06/24/23 Unknown (Synthroid) phentermine 37.5 mg tablet 37.5 mg PO DAILY #30 tabs 06/03/23 06/24/23 Unknown blood sugar diagnostic (OneTouch #400 ea 06/10/23 06/24/23 Unknown Verio test strips) insulin glargine U-300 conc 300 40 unit (0.1333 mL) subcut DAILY 06/10/23 06/24/23 Unknown unit/mL (3 mL) subcutaneous pen 90 days #12 mL (Toujeo Max U-300 SoloStar) Past Medical History Medical History (Updated 06/24/23 @ 15:37 by Adia Ellis PA-C) Dyslipidemia History of colon polyps History of COVID-19 02/2020- no hosp; resolve Hypertension Hypothyroidism Kidney stones Obesity Sleep apnea CPAP Type 2 diabetes mellitus, with long-term current use of insulin IDDM Past Family History Family History Father Diabetes Cancer Mother Hypertension Other No family history of adverse response to anesthesia Past Surgical History Surgical History (Reviewed 06/24/23 @ 15:36 by MINISTERIO Mares H/O abdominoplasty and panniculectomy with incisional hernia repair History of hysterectomy History of total left hip replacement History of total right hip replacement Hx of cystoscopy multiple; 06/30/23 [facility] Hx of myomectomy S/P left inguinal hernia repair Social History Smoking Status: Never smoker Do You Dip or Chew Tobacco: No Hx Alcohol Use: Yes Alcohol type: beer alcohol intake frequency: a few times a month Hx Substance Use: No substance use type: does not use Lab Results Anesthesia Preop Results Results Anesthesia Widget: WBC 9.70 K/ul (4.8-10.8) 06/22/23 Hgb 13.3 g/dl (12.0-16.0) 06/22/23 Hct 39.9 % (37.0-47.0) 06/22/23 Plt 246 K/uL (130-400) 06/22/23 Na 140 mmol/L (136-145) 06/22/23 K 4.0 mmol/L (3.5-5.1) 06/22/23 Cl 103 mmol/L (98-107) 06/22/23 CO2 28 mmol/L (21-32) 06/22/23 BUN 12 mg/dl (6-23) 06/22/23 Creat 0.64 mg/dl (0.6-1.2) 06/22/23 Glucose Level 125 mg/dl (70-99(Fasting)) H 06/22/23 TSH 1.302 uIu/ml (0.300-4.500) 06/22/23 HA1c 6.6 % (4.5-5.6) H 06/22/23 Testing Electrocardiogram Date: 06/22/23 NSR, rate 81 bpm Incomplete RBBB Chest X-Ray Date: 06/22/23 *1view* No acute chest disease. Other Testing Abdomen pelvis CT 02/10/23 1. 5 mm x 2 mm left ureterovesical junction calculus. Two proximal left ureteral calculi which measure up to 4 x 2 mm. No left hydronephrosis. 2. No change in mild right hydronephrosis and right-sided urothelial thickening with a 9 mm right renal pelvis calculus. Bilateral nephrolithiasis. No right ureteral calculi. 3. No bowel obstruction.
--- NOTE | 2023-07-06 16:20 | PAT Medication Instructions ---
Medication Instructions Date of Service July 06, 2023 Home Medications Medication Instructions Recorded metformin 1,000 mg tablet 1,000 mg PO BID 90 days #180 tabs 10/12/22 tirzepatide 15 mg/0.5 mL 15 mg (0.5 mL) subcut Q7D #6 mL 02/05/23 subcutaneous pen injector (Mounjaro) phentermine 37.5 mg tablet 37.5 mg PO DAILY #30 tabs 06/03/23 blood sugar diagnostic (OneTouch #400 ea 06/10/23 Verio test strips) insulin glargine U-300 conc 300 40 unit (0.1333 mL) subcut DAILY 06/10/23 unit/mL (3 mL) subcutaneous pen 90 days #12 mL (Toujeo Max U-300 SoloStar) oxybutynin chloride 5 mg 5 mg PO DAILY #7 tabs 06/30/23 tablet,extended release 24 hr oxycodone 5 mg tablet 5 mg PO Q6H PRN pain #7 tabs 06/30/23 tamsulosin 0.4 mg capsule (Flomax) 0.4 mg PO DAILY #7 caps 06/30/23 cholecalciferol (vitamin D3) 125 mcg (5,000 unit) capsule 5,000 units PO DIRECTED valacyclovir 1 gram tablet 1,000 mg PO Q12H PRN Cold Sores cyanocobalamin (vitamin B-12) 1,000 mcg tablet 1,000 mcg PO QAM vitamin E (dl, acetate) 180 mg (400 unit) capsule 400 units PO BID insulin lispro 200 unit/mL (3 mL) subcutaneous pen (Humalog KwikPen U-200 Insulin) 60 unit subcut DAILY metformin 1,000 mg tablet 1,000 mg PO BID tirzepatide 15 mg/0.5 mL subcutaneous pen injector (Mounjaro) 15 mg (0.5 mL) subcut Q7D lisinopril 5 mg tablet 5 mg PO QAM arpofnbg-rno-zvwkdg 5 mg-zeaxanth 1 mg-bilberry 7.5 mg-herbal capsule ([employer] Formula) 1 cap PO QAM atorvastatin 40 mg tablet 80 mg PO QPM docusate sodium 100 mg capsule (Col-Rite) 100 mg PO BID PRN Constipation levothyroxine 75 mcg tablet (Synthroid) 75 mcg PO DAILY phentermine 37.5 mg tablet 37.5 mg PO DAILY # insulin glargine U-300 conc 300 unit/mL (3 mL) subcutaneous pen (Toujeo Max U- 300 SoloStar) 40 unit (0.1333 mL) subcut DAILY 9 oxybutynin chloride 5 mg tablet,extended release 24 hr 5 mg PO DAILY oxycodone 5 mg tablet 5 mg PO Q6H PRN pain tamsulosin 0.4 mg capsule (Flomax) 0.4 mg PO DAILY Continue as directed levothyroxine 75 mcg tablet (Synthroid) 75 mcg PO DAILY tamsulosin 0.4 mg capsule (Flomax) 0.4 mg PO DAILY STOP taking 2 weeks before surgery vitamin E (dl, acetate) 180 mg (400 unit) capsule 400 units PO BID qepvsevu-iqi-skcotr 5 mg-zeaxanth 1 mg-bilberry 7.5 mg-herbal capsule ([employer] [facility] [employer] [facility] Formula) 1 cap PO QAM STOP taking 7 days before surgery tirzepatide 15 mg/0.5 mL subcutaneous pen injector (Mounjaro) 15 mg (0.5 mL) subcut Q7D STOP taking 5 days before surgery phentermine 37.5 mg tablet 37.5 mg PO DAILY DO NOT take the morning of surgery cholecalciferol (vitamin D3) 125 mcg (5,000 unit) capsule 5,000 units PO DIRECTED cyanocobalamin (vitamin B-12) 1,000 mcg tablet 1,000 mcg PO QAM insulin lispro 200 unit/mL (3 mL) subcutaneous pen (Humalog KwikPen U-200 Insulin) 60 unit subcut DAILY metformin 1,000 mg tablet 1,000 mg PO BID lisinopril 5 mg tablet 5 mg PO QAM docusate sodium 100 mg capsule (Col-Rite) 100 mg PO BID PRN Constipation oxybutynin chloride 5 mg tablet,extended release 24 hr 5 mg PO DAILY Take morning of surgery With a small sip of water, OTHERWISE NOTHING TO EAT OR DRINK AFTER MIDNIGHT: valacyclovir 1 gram tablet 1,000 mg PO Q12H PRN Cold Sores (if needed) oxycodone 5 mg tablet 5 mg PO Q6H PRN pain (if needed) Take evening before surgery valacyclovir 1 gram tablet 1,000 mg PO Q12H PRN Cold Sores (if needed) insulin lispro 200 unit/mL (3 mL) subcutaneous pen (Humalog KwikPen U-200 Insu poli) 60 unit subcut DAILY metformin 1,000 mg tablet 1,000 mg PO BID atorvastatin 40 mg tablet 80 mg PO QPM docusate sodium 100 mg capsule (Col-Rite) 100 mg PO BID PRN Constipation (if needed) oxycodone 5 mg tablet 5 mg PO Q6H PRN pain (if needed) insulin glargine U-300 conc 300 unit/mL (3 mL) subcutaneous pen (Toujeo Max U- 300 SoloStar) 40 unit (0.1333 mL) subcut PM Other Notes If you have any questions please call us at [phone] or [phone] or [phone] or [phone]
[~2023-08-04 05:18] MED LIST changes: -ATOR-22 PO; -CHOL20009 PO; -CYAN100020 PO; -GLC500 PO; -INSPMPHMLG SQ; -LEVO112T4 PO; -LIRA18IN SQ; -LISI5TAB3 PO; -LVMI SQ; -MTR600X PO; -MULT-506 PO; -NVLNI SQ; +ROPIVACAINE 0.5% HCL/PF 246 MG, Ketorolac (*for OR use only*) 30 MG, EPINEPHrine 30MG/3... INFIL SCH; -VALA1TAB PO
[2023-08-04] MEDS: LR 500ML BOLUS, THEN 15ML/HR IV SCH (05:59)
[2023-08-04] MEDS: LR 60ML/HR IV SCH (05:59)
--- NOTE | 2023-08-04 06:21 | History & Physical Bridge Note ---
Date of Service August 04, 2023 History & Physical Bridge Note I have examined the patient, reviewed the History & Physical and in the interval since the performance of the History & Physical I have noted the following changes of clinical significance:consent and site verified. no changes noted
[2023-08-04] MEDS ORDERED: BUPIVACAINE 0.5 % 5 MG/1 ML PF 10ML VIAL ONE (06:23)
[2023-08-04] MEDS ORDERED: BUPIVACAINE 0.25% PF 30 ML VIAL ONE (06:23)
[2023-08-04] MEDS ORDERED: fentaNYL citrate PF 100 MCG/2 ML VIAL ONE (06:36)
[2023-08-04] MEDS ORDERED: MIDAZOLAM HCL 1 MG/ML 2ML VIAL ONE ×2 (06:36→06:46)
--- NOTE | 2023-08-04 06:38 | Anesthesiology Consultation ---
Date of Service August 04, 2023 Assessment & Plan Chart Review Chart Review: Acceptable Risk for Surgery and Patient NOT seen in Pre Admission Testing Consults Requested none ASA ASA3 Proposed Anesthesia Anesthesia Type: MAC Spinal Regional (back up [place]) Risk / Benefits Reviewed With: PT / POA / Parent / Guardian, Accepts Plan and Informed Consent Obtained History Surgery Operation Date: 08/04/23 07:00 Proposed Procedures p Left Total Knee Arthroplasty - Jeferson Donnelly MD Height/Weight Height: 5 ft 7.5 in Weight: 107 kg Allergies Allergy/AdvReac Type Severity Reaction Status Date / Time Opioids - Morphine Analogues AdvReac Intermediate dizziness/n Verified 08/04/23 05:48 ausea Medications Home Medications Medication Instructions Recorded Confirmed Last Taken cholecalciferol (vitamin D3) 125 5,000 units PO DIRECTED 01/23/19 08/04/23 07/29/23 mcg (5,000 unit) capsule valacyclovir 1 gram tablet 1,000 mg PO Q12H PRN Cold Sores 01/23/19 08/04/23 09/23/22 (Valtrex) cyanocobalamin (vitamin B-12) 1,000 mcg PO QAM 03/27/19 08/04/23 07/29/23 1,000 mcg tablet lancets 33 gauge (OneTouch Delica ##1 08/01/19 06/24/23 Unknown Lancets) vitamin E (dl, acetate) 180 mg 400 units PO BID 08/01/19 08/04/23 07/29/23 (400 unit) capsule metformin 1,000 mg tablet 1,000 mg PO BID 90 days #180 tabs 10/12/22 08/04/23 08/03/23 21:00 tirzepatide 15 mg/0.5 mL 15 mg (0.5 mL) subcut Q7D #6 mL 02/05/23 08/04/23 07/25/23 subcutaneous pen injector (Adryan) lisinopril 5 mg tablet 5 mg PO QAM 02/25/23 08/04/23 08/03/23 10:00 gpehxshz-xkp-ftdjzp 5 mg-zeaxanth 1 cap PO QAM 02/25/23 08/04/23 07/29/23 1 mg-bilberry 7.5 mg-herbal capsule ([employer] Health Formula) atorvastatin 40 mg tablet 80 mg PO QPM 04/08/23 08/04/23 08/03/23 21:00 docusate sodium 100 mg capsule 100 mg PO BID PRN Constipation 04/08/23 08/04/23 08/03/23 21:00 (Col-Rite) blood sugar diagnostic (OneTouch #400 ea 06/10/23 06/24/23 Unknown Verio test strips) insulin glargine U-300 conc 300 40 unit (0.1333 mL) subcut DAILY 06/10/23 08/04/23 08/03/23 21:00 unit/mL (3 mL) subcutaneous pen 90 days #12 mL 40 units (Toujeo Max U-300 SoloStar) oxycodone 5 mg tablet 5 mg PO Q6H PRN pain #7 tabs 06/30/23 08/04/23 Unknown Synthroid 75 mcg tablet 75 mcg PO DAILY 90 days #90 tabs 07/08/23 08/04/23 08/03/23 06:00 (levothyroxine) insulin lispro 200 unit/mL (3 mL) See Rx Instructions .Route 07/12/23 08/04/23 08/03/23 20:00 subcutaneous pen (Humalog KwikPen .COMPLEX 90 days #30 mL 20 units U-200 Insulin) phentermine 37.5 mg tablet 37.5 mg PO DAILY 08/04/23 08/04/23 07/28/23 (Adipex-P) Active Medications Generic Name Dose Route Start Last Admin Trade Name Freq PRN Reason Stop Dose Admin Lactated Ringer's 1,000 mls @ 15 mls/hr 08/04/23 06:00 08/04/23 05:59 Lr IV 08/04/23 18:00 15 mls/hr .Q24H SHRUTI Administration Lactated Ringer's 1,000 mls @ 60 mls/hr 08/04/23 06:00 08/04/23 05:59 Lr IV 08/04/23 22:39 Not Given .[id number] SHRUTI Tranexamic Acid 1,000 mg in 100 mls @ 600 mls/hr 08/04/23 06:00 08/04/23 06:40 Tranexamic Acid / 0.7% Nacl IV 08/04/23 18:00 600 mls/hr TODAY@0600 SHRUTI Administration NPO Date Last Intake of Fluids: 08/03/23 Time Last Intake of Fluids: 21:00 Date Last Intake of Solids: 08/03/23 Time Last Intake of Solids: 21:00 Past Medical History Medical History History of colon polyps History of COVID-19 02/2020- no hosp; resolve Kidney stones Obesity Hypertension Sleep apnea CPAP Dyslipidemia Hypothyroidism Type 2 diabetes mellitus, with long-term current use of insulin IDDM Exercise / Class Metabolic Activity II 4-5 Yardwork/Stairs/Walk up hill Past Family History Family History Father Diabetes Cancer Mother Hypertension Other No family history of adverse response to anesthesia Past Surgical History Surgical History Hx of myomectomy Hx of cystoscopy multiple; 06/30/23 [facility] S/P left inguinal hernia repair H/O abdominoplasty and panniculectomy with incisional hernia repair History of total left hip replacement History of total right hip replacement History of hysterectomy Past Anesthesia History No Hx of Anesthesia Complications and No Family Hx of Anesthesia Complications Social History Smoking Status: Never smoker Do You Dip or Chew Tobacco: No Hx Alcohol Use: Yes Alcohol type: beer alcohol intake frequency: a few times a month Hx Substance Use: No substance use type: does not use Review of Systems ROS Unobtainable: All systems reviewed & are unremarkable except as noted in HPI & below Physical Exam Vital Signs Last Vital Signs Temp 36.9 C 08/04/23 05:52 Pulse 87 08/04/23 05:52 Resp 18 08/04/23 05:52 BP 137/72 08/04/23 05:52 Pulse Ox 97 08/04/23 05:52 O2 Del Method Room Air 08/04/23 05:52 ENMT Mouth: no TMJ abnormality Thyromental Distance: > or= 3.5 Finger Breadths Mallampati Class: III Neck normal visual inspection and trachea midline; neck extension not limited Respiratory normal respiratory effort Auscultation: lungs clear to auscultation bilaterally Cardiovascular Rate/Rhythm: regular rate and regular rhythm Heart Sounds: no murmur Musculoskeletal Spine: normal cervical ROM Extremities: full ROM of extremities Neurologic moves all extremities Psychiatric Orientation: alert and oriented x 3 Testing Laboratory Results 08/04/23 05:54 POC Glucose 166 H Laboratory Tests 10/02/20 06/22/23 06/22/23 08:24 11:15 11:16 WBC Hgb Hct Plt Count PT INR APTT Sodium 140 Potassium 4.0 Chloride 103 Carbon Dioxide 28 BUN 12 Creatinine 0.64 Glucose 125 H Fasting Glucose 130 H Hemoglobin A1c 6.6 H 07/15/23 07/15/23 16:30 16:30 WBC 9.86 Hgb 13.4 Hct 40.7 Plt Count 226 PT 10.5 INR 1.0 APTT 25 Sodium Potassium Chloride Carbon Dioxide BUN Creatinine Glucose Fasting Glucose Hemoglobin A1c Electrocardiogram Date: 06/22/23 Normal sinus rhythm Incomplete right bundle branch block Borderline ECG When compared with ECG of 04-JUN-2022 09:38, No significant change was found
[2023-08-04] MEDS: TRANEXAMIC ACID 1,000 MG **IV Pre-op IV SCH (06:40)
[2023-08-04] MEDS ORDERED: LIDOCAINE 2% 2 ML VIAL/AMP(20MG/ML) INFIL ONE ×2 (06:49→07:18)
[2023-08-04] MEDS ORDERED: ATROPINE SULFATE 0.1 MG/ML 10ML SYR IV PRN (06:57)
[2023-08-04] MEDS ORDERED: fentaNYL citrate PF 100 MCG/2 ML VIAL IV PRN (06:57)
[2023-08-04] MEDS ORDERED: ONDANSETRON INJ 2 MG/ML 2 ML VIAL IV PRN (06:57)
[2023-08-04] MEDS ORDERED: ePHEDrine sulfate 50 MG/ML AMP IV PRN (06:57)
[2023-08-04] MEDS: ceFAZolin 2000MG 2,000 MG/15 ML SYR IV SCH ×2 (06:57→15:37)
[2023-08-04] MEDS ORDERED: PROPOFOL IV EMULSION 10 MG/ML 20 ML VIAL IV ONE ×3 (07:18→08:27)
[2023-08-04] MEDS: ROPIVACAINE 0.5% HCL/PF 246 MG, Ketorolac (*for OR use only*) 30 MG, EPINEPHrine 30MG/3... INFIL SCH (08:17)
[2023-08-04] MEDS: TRANEXAMIC ACID 1,000 MG **IV Intra-op IV SCH (08:18)
[2023-08-04] MEDS ORDERED: ONDANSETRON INJ 2 MG/ML 2 ML VIAL ONE (08:28)
--- NOTE | 2023-08-04 08:52 | Post Operative Brief Note ---
Immediate Post Op Note v1 Date of Surgery August 04, 2023 Pre & Post Diagnosis Operation Date: 08/04/23 07:00 <No data on this case meets the specified criteria> Severe left knee osteoarthritis with flexion varus deformityPre and postop diagnosis same I identified the patient and participated in the time-out.: Yes Procedure Operation Date: 08/04/23 07:00 <No data on this case meets the specified criteria> Cemented left total knee replacement Surgeon Jeferson Donnelly MD Synthetic Department Supervisor Lisa carlson/Collins Estimated Blood Loss 25 Findings Consistent with Post-Op Diagnosis Severe osteoarthritis with marked deformity flexion and valgus Complications None
--- NOTE | 2023-08-04 08:57 | Operative Report ---
Post Operative Report Pre & Post Diagnosis Operation Date: 08/04/23 07:00 <No data on this case meets the specified criteria> Left knee osteoarthritis with severe valgus flexion deformity pre and postop diagnosis same I identified the patient and participated in the time-out.: Yes Procedure Operation Date: 08/04/23 07:00 <No data on this case meets the specified criteria> Cemented left total knee replacement Surgeon Jeferson Donnelly MD Microsoft Architect Lisa carlson/Collins Estimated Blood Loss 25 Findings Consistent with Post-Op Diagnosis Severe DJD with flexion and valgus deformity Specimens Bone pathology Drains None Complications None Indications Severe pain and deformity left knee Description of Procedure After the patient was appropriate notified site verified consent verified antibiotics confirmed to be given the left lower extremity was prepped and draped use routine fashion.Tourniquet was inflated to 275 mmHg after exsanguination limb with a rubber band for total of 75 minutes.Midline exposure was utilized parapatellar arthrotomy performed synovectomy completed osteophytes resected. There was marked deformity of the femur and the valgus alignment had marked wear of the lateral tibial plateau. It was grade 4 disease the entire patellofemoral joint and the lateral compartment.Once the synovectomy was completed osteophytes resected distal femur was entered with a drill bit and the cruciates resected the tibia subluxated the menisci resected.The distal femur was then resected 12 mm proximal tibia 4 mm the extension and flexion gaps were appropriate for 5 to 6 mm with appropriate soft tissue lesion went up to a 10 mm there was marked tightness laterally.Both femur and tibia were sized to a 6 appropriate resection made on the anterior posterior condylar and chamfer cuts on the femur flexion gap checked and was excellent with a 10. The box cut was then made and the size 6 fit well the tibia was then broached and reamed to a size 6. Patella was resected leaving roughly 16 mm. 38 button was then drilled into position. The patella tracked well with an internal release. The Ortho mix was then it was then injected all about the knee.Trial implants were then removed and the soaked in Betadine for 2 minutes then irrigated and then the permanent cemented in position tibia femur patella in that order a 12 minutes the tourniquet was deflated minor bleeding controlled electrocautery at 14 minutes the trial spacer was removed there was no cement removal required and he was irrigated 1 final time with Pulsavac Betadine the permanent liner seated the knee permanent reduction carried out the knee had excellent range of motion from 0 to 120 degrees with no instability of the patella or of the tibial femoral implant.The wound was then closed with #2 Vicryl for the capsule layer 2-0 Vicryl for subcutaneous layer and standstill clips for skin. Appropriate dressing was applied including a Porfirio Quinonez cotton dressing secondary to the lateral release. Family was contacted and informed that patient surgery went well. DVT prophylaxis starting tomorrow. Summary of implants size 6 left femur posterior cruciate substituting size 6 rotating platform tray size 38 patella size 6 x 10 mm posterior cruciate substituting rotating platform insert. This is the ATT UNE total knee system by Janis I attest to the content of the Intraoperative Record and any orders documented therein. Any exceptions are noted below.
--- NOTE | 2023-08-04 09:00 | Discharge Summary ---
Date of Service August 05, 2023 Admission HPI Per Admitting Provider Severe osteoarthritis left knee with flexion valgus deformity Principal Diagnosis Severe osteoarthritis left knee Discharge Data Allergies Allergy/AdvReac Type Severity Reaction Status Date / Time Opioids - Morphine Analogues AdvReac Intermediate dizziness/n Verified 08/04/23 05:48 ausea Consultations None Procedures Performed Operation Date: 08/04/23 07:00 Actual Procedures p Left Total Knee Arthroplasty(Left) - Jeferson Donnelly MD Ordered Studies 08/04/23 05:00 US - OR guided needle placemen Routine Hospital Course (1) Status post left knee replacement: Care pathway for total knee replacement discharge to home Total Time Total Time Spent Total Time Spent (In Minutes): 5 Discharge Plan Discharge Items Reason For Visit: Left Knee Osteoarthritis Discharge Diagnosis: same Condition on Discharge: Good Activity: Per Instructions section Lifting: Gradually increase as tolerated Bathing: Keep incision dry Sexual Activity: Wait until after follow-up appointment Exercise/Sports: Wait until after follow-up appointment Call non-emergency contact if: your temperature is above 101.5, your wound has increased redness, your wound has increased drainage and your wound pain has increased Follow-up/Referrals: Staci Cisneros DO [Primary Care Provider] - Ambulatory Orders: Partial Thromboplastin Time (Routine) Timeframe: 1 Day Location: Determined by Patient Ordered By: Adia Ellis Type and Screen (Routine) Timeframe: [id number] Location: Determined by Patient Ordered By: Adia Ellis Addtl Attending Provider Instructions: DIET: * Resume previous diet. MEDICATIONS: * Please take your prescriptions as instructed at your pre-op appointment and/or see medication discharge instructions listed above. * If concerns develop, call your physician's office at . SPECIAL CARE INSTRUCTIONS: * Ice/Elevate as instructed. * Keep dressing clean, dry, intact. * Your surgical extremity may be discolored due to prepping agents used on the skin. A bluish-green tint is a normal variant and should not cause alarm. Call your doctor at [phone] if: * Temperature above 101 degrees * Pain not relieved by pain medicine ordered * There is increased drainage or redness from any incision * You have any unanswered questions, problems or concerns. FOLLOW UP VISIT: * If not already scheduled, please call the office at to schedule a follow-up appointment. Pending Studies at Discharge: Yes (Bone pathology) Stand-Alone Forms: [facility] Medications and DC Order Prescriptions: No Action metformin 1,000 mg tablet 1,000 mg PO BID 90 Days Qty: 180 3RF Mounjaro 15 mg/0.5 mL pen injector 15 mg subcut Q7D Qty: 6 1RF Patient Comments: takes on Sundays, last dose on 07/25/23 (DME) OneTouch Verio test strips Strip See Rx Instructions .ROUTE .MEDSUPPLY Qty: 400 3RF Rx Instructions: test 4 times daily Toujeo Max U-300 SoloStar 300 unit/mL (3 mL) insulin pen 40 unit subcut DAILY 90 Days Qty: 12 3RF levothyroxine [Synthroid] 75 mcg tablet 75 mcg PO DAILY 90 Days Qty: 90 3RF Humalog KwikPen Insulin 200 unit/mL (3 mL) insulin pen See Rx Instructions .ROUTE .COMPLEX 90 Days Qty: 30 3RF Rx Instructions: inject with meals tid up to 60 u daily valacyclovir [Valtrex] 1 gram tablet 1,000 mg PO Q12H PRN (Reason: Cold Sores) cholecalciferol (vitamin D3) 5,000 unit capsule 5,000 units PO DIRECTED Rx Instructions: TAKES 5,000 UNITS BID, WEDNESDAY THROUGH WEDNESDAY. vitamin E (dl, acetate) 400 unit capsule 400 units PO BID (DME) lancets [OneTouch Delica Lancets] 33 gauge misc See Rx Instructions .ROUTE .MEDSUPPLY Qty: 1 Rx Instructions: test 4 times daily docusate sodium [Col-Rite] 100 mg capsule 100 mg PO BID PRN (Reason: Constipation) cyanocobalamin (vitamin B-12) 1,000 mcg Tablet 1,000 mcg PO QAM Macular Health Formula 5-1-7.5 mg Capsule 1 cap PO QAM lisinopril 5 mg tablet 5 mg PO QAM atorvastatin 40 mg tablet 80 mg PO QPM phentermine [Adipex-P] 37.5 mg tablet 37.5 mg PO DAILY Patient Comments: LAST DOSE 06/24/23- instructed to hold 5 days prior to procedure oxycodone 5 mg tablet 5 mg PO Q6H PRN (Reason: pain) Qty: 7 0RF Admission Data Admit Date/Time: 08/04/23 09:13 Attending Provider: Jeferson Donnelly Admit Provider: Jeferson Donnelly Primary Care Provider: Staci Cisneros
--- NOTE | 2023-08-04 09:11 | Operative Report ---
Post Operative Report Pre & Post Diagnosis Operation Date: 08/04/23 07:00 Pre-Op Diagnosis: Left Knee Osteoarthritis Post-Op Diagnosis: Left Knee Osteoarthritis I identified the patient and participated in the time-out.: Yes Procedure Operation Date: 08/04/23 07:00 Actual Procedures p Left Total Knee Arthroplasty(Left) - Jeferson Donnelly MD Surgeon Jeferson Donnelly MD Evening Anchor Janeth/Collins Estimated Blood Loss 25 Findings Consistent with Post-Op Diagnosis Same as postoperative diagnosis. Specimens The resected portions of the femur and the tibia. Description of Procedure Please see detailed operative note. I attest to the content of the Intraoperative Record and any orders documented therein. Any exceptions are noted below.
--- NOTE | 2023-08-04 09:16 | Operative Report ---
Post Operative Report Pre & Post Diagnosis Operation Date: 08/04/23 07:00 Pre-Op Diagnosis: Left Knee Osteoarthritis Post-Op Diagnosis: Left Knee Osteoarthritis I identified the patient and participated in the time-out.: Yes Procedure Operation Date: 08/04/23 07:00 Actual Procedures p Left Total Knee Arthroplasty(Left) - Jeferson Donnelly MD Surgeon JENNIFER Donnelly MD Blower Mechanic Janeth/Collins ESTEVEZ Estimated Blood Loss 25 Findings Consistent with Post-Op Diagnosis see operative report Specimens see operative report Drains none Complications none Disposition Accompanied Patient To Recovery: Yes Indications This 53 year old female presented to the office with complaints of persisting left knee pain. She had tried conservative care measures without improvement. She elected to proceed with surgical intervention after being educated about potential risks and outcomes. Preoperative imaging was obtained. Description of Procedure The patient was administered a spinal anesthetic and then taken to the operating room where she was given sedation. She was prepped and draped in the usual sterile fashion. Please see Dr. Donnelly's operative report for specifics of the procedure. I was present for the entire case from initial patient positioning through final wound closure. Assistance was provided in tissue retraction, hemostasis, trial implant placement, final implant placement, and final wound closure. The patient was taken to the recovery room in satisfactory condition. I attest to the content of the Intraoperative Record and any orders documented therein. Any exceptions are noted below.
--- NOTE | 2023-08-04 09:37 | XRay Report ---
LEFT KNEE 2 VIEWS History: Left total knee arthroplasty. Degenerative arthritis. Postop. FINDINGS: The patient is status post a left total knee arthroplasty. The hardware is intact. No fract ure or dislocation. Skin warren are in place. IMPRESSION: Left total knee arthroplasty. No evidence for hardware complication. ACT 112: Negative or not required by law. Electronically signed by: Guido Dempsey M.D. 08/04/2023 9:35 AM
--- NOTE | 2023-08-04 09:43 | Anesthesiology Progress Note ---
Date of Service August 04, 2023 Anesthesia Post Procedure Vital Signs Vital Signs: Temp Pulse Pulse Resp BP BP Pulse Ox 08/04/23 09:30 75 15 119/70 98 08/04/23 09:20 85 21 122/69 94 08/04/23 09:10 80 16 123/68 100 08/04/23 09:03 36.9 C 84 20 102/62 100 08/04/23 05:52 36.9 C 87 18 137/72 97 O2 Del Method O2 Flow Rate 08/04/23 09:30 Room Air 08/04/23 09:20 Room Air 08/04/23 09:10 Oxymask 4 08/04/23 09:03 Oxymask 4 08/04/23 05:52 Room Air Transfer of Care Handoff Completed per policy Notes Mental Status: alert / awake / arousable Patient Amnestic to Procedure: Yes Nausea / Vomiting: adequately controlled Pain: adequately controlled Airway Patency, RR, SpO2: stable & adequate BP & HR: stable & adequate Hydration State: stable & adequate Neuraxial Anesthesia: was administered and sensory block is resolving Anesthetic Complications: no major complications apparent and Pt Satisfied with anesthetic care
[2023-08-04] MEDS ORDERED: diphenhydrAMINE 50 MG/ML VIAL IV PRN (10:02)
[2023-08-04] MEDS ORDERED: bisacodyL 10 MG SUPP PR PRN (10:02)
[2023-08-04] MEDS ORDERED: valACYclovir HCL 500 MG TABLET PO PRN (10:02)
[2023-08-04] MEDS ORDERED: MAGNESIUM HYDROXIDE SUSP 30 ML UDC PO PRN (10:02)
[2023-08-04] MEDS ORDERED: PHARMACY GLYCEMIC MGMT CONSULT PRN (10:02)
[2023-08-04] MEDS ORDERED: METOCLOPRAMIDE HCL INJ 5 MG/ML 2 ML VIAL IV PRN (10:02)
[2023-08-04] MEDS ORDERED: NALOXONE HCL 0.4 MG/1 ML VIAL/CARP IV PRN (10:02)
[2023-08-04] MEDS ORDERED: ALUMINUM/MAGNESIUM SUSP 30 ML UDC PO PRN (10:02)
[2023-08-04] MEDS: SODIUM CHLORIDE 0.9% 1,000 ML IV SCH (10:36)
--- NOTE | 2023-08-04 10:48 | Pharmacy Report ---
Pharmacy Glycemic Short Note 2 - Date of Service August 04, 2023 - Glycemic Short BSG Results (Last 24 hours): 08/04/23 08/04/23 05:54 09:08 POC Glucose 166 H 138 H OUTPATIENT ANTIDIABETIC REGIMEN: * Toujeo 40 units daily, humalog, metformin 1 gm bid, melissa ASSESSMENT: * 53 year old admitted for L TKA, POD 0 - pharmacy consulted for glycemic management. No steroids given intraoperatively. Last basal insulin dose was last evening. Plan to add novolog starting with lunch. May consider adding scale for basal insulin at HS as unclear what PO intake will be today. PLAN FOR INPATIENT GLYCEMIC CONTROL: * Hold outpatient oral diabetes medications * Basal insulin * Lantus 30-40 units hs * Bolus insulin * NovoLog per scale ACHS or Q6hrs while NPO * Goal Range: Low 110 mg/dL - High 140 mg/dL * Correction Factor: 20 mg/dL/unit * Nutritional / Prandial insulin per carb ratio of 1 unit per 7 grams CHO consumed
[2023-08-04] MEDS ORDERED: DEXTROSE 50% 50 ML SYRINGE IV PRN (11:00)
[2023-08-04] MEDS ORDERED: GLUCAGON FOR INJ 1 MG VIAL IM PRN (11:00)
[2023-08-04] MEDS ORDERED: GLUCOSE 10 TAB/TUBE PO PRN (11:00)
[2023-08-04] MEDS ORDERED: CARBOHYDRATES FOR HYPOGLYCEMIA PO PRN (11:00)
[2023-08-04] MEDS ORDERED: GLUCOSE 40% GEL 15 GM TUBE PO PRN (11:00)
--- NOTE | 2023-08-04 11:08 | Orthopedic Progress Note ---
Date of Service August 04, 2023 Assessment & Plan Admission and Anticipated Discharge Date Admission Date: August 04, 2023 Orthopedic Progress Note Tolerated left total knee replacement well denies chest pain shortness of breath fever chills nausea vomiting or headache. Vital signs are stable afebrile. Neurovascular check limited by spinal wound dressing clean dry and intact postop x-rays look excellent. Family contacted. Continue care pathway.
[2023-08-04] MEDS: KETOROLAC 30 MG/ML VIAL IV SCH (12:28)
[2023-08-04] MEDS: INSULIN ASPART PER UNIT CHARGE SC SCH (12:34)
[2023-08-04] MEDS: oxyCODONE HCL IR 5 MG TAB (IMMEDIATE RELEASE) PO PRN (14:15)
[2023-08-04] MEDS: ACETAMINOPHEN 500 MG TAB PO SCH (14:15)
--- OUTSIDE RECORDS SUMMARY | 2023-08-04 15:26 | External Medical Summary | Continuity of Care Document ---
Author Name Unknown Organization [facility] [id number] Address [address] [place] [id number] Care Team Providers Care Slide Developer Name Role Phone No, Referring Primary Care Physician Unavailab le Encounter [facility] [id number] Date(s): 07/15/23 - 07/15/[address] [facility] [address] [place] [id number] [facility] [address] [place] [id number] Encounter Diagnosis Osteoarthritis of left knee(Discharge Diagnosis) - 07/15/23 Discharge Disposition: Home or Self Care Attending Physician: HERB Guadalupe, Tony Valentin Referring Physician: MD Cony, Jeferson Gonzalez Allergies, Adverse Reactions, Alerts No Known Allergies Medications atorvastatin 20 mg oral tablet Start: 02/06/19 16:08:00 EDT, 1 tab, PO, Daily, 80mg daily Start Date: 02/06/19 Status: Ordered insulin lispro (HumaLOG) Start: 02/06/19 16:10:00 EDT, SS ac Start Date: 02/06/19 Status: Ordered lisinopril 2.5 mg oral tablet Start: 02/06/19 16:08:00 EDT, 1 tab, PO, Daily Start Date: 02/06/19 Status: Ordered metFORMIN 1000 mg oral tablet Start: 02/06/19 16:08:00 EDT, 1 tab, PO, bid Start Date: 02/06/19 Status: Ordered Mounjaro 12.5 mg/0.5 mL subcutaneous solution Start: 10/12/22 7:32:00 EDT Start Date: 10/12/22 Status: Ordered phentermine 37.5 mg oral tablet TAKE 1 TABLET BY MOUTH ONCE DAILY Start Date: 06/18/22 Status: Ordered Synthroid 75 mcg (0.075 mg) oral tablet Start: 01/01/20 16:02:00 EDT, 1 tab, daily Start Date: 01/01/20 Status: Ordered Totab SoloStar 300 units/mL subcutaneous solution Start: 02/06/19 16:08:00 EDT, 70 units, subQ Start Date: 02/06/19 Status: Ordered Vitamin B12 Start: 02/06/19 16:09:00 EDT, 1 tab, PO, Daily Start Date: 02/06/19 Status: Ordered Vitamin D3 Start: 02/06/19 16:09:00 EDT, 5,000 Int_Unit =, PO, bid Start Date: 02/06/19 Status: Ordered vitamin E Start: 07/17/19 15:17:00 EST, 800 Int_Unit =, PO, Daily Start Date: 07/17/19 Status: Ordered Mental Status 07/15/23 Barriers to Learning one year None evide nt Mandatory Health Literacy Documentation Yes Health Literacy Communication Barriers N ever Primary Language Citizen Of [place] Problem List Condition Confirmation Course Effective Dates Status H ealth Status Informant Nevus Confirmed Active Calcific tendinitis of right shoulder Confirmed Active History of dysplastic nevus Confirmed Active Osteoarthritis of left knee Confirmed Active Osteoarthritis, knee Confirmed Active Diagnosis Diagnosis Type Effective Dates Health Status Clinical Service Informant Osteoarthritis of left knee Discharge Diagnosis 07/15/23 Procedures Procedure Date Related Diagnosis Body Site Status Surgery 05/2022 Completed Procedure 1 04/07/21 Completed Shave biopsy of skin 01/01/20 Comp leted Shave biopsy 2 07/17/19 Completed Hernia 3 Completed Hernia 4 Completed Hernia 5 Completed Hip replacement 6 Complet ed Hip replacement 7 Complet ed Hysterectomy 8 Completed 1left arm carpal tunnel release 2left chin piece of larger lesion 06403 abd [id number] 5l lower abd 2005 [id number] left [id number] right [id number] Vital Signs Most recent to oldest [Reference Range]: 1 Height 172 cm (07/15/23 2:41 PM) Patient Weight 106 kg (07/15/23 2:41 PM) Body Mass Index 35.83 kg/m2 (07/15/23 2:41 PM) Temperature [36.5-37.9 DegC] 36.3 DegC *LOW* (07/15/23 2:41 PM) Heart Rate 83 bpm (07/15/23 2:41 PM) Blood Pressure 112/64mmHg (07/15/23 2:41 PM) Cuff Pulse Pressure 48 mmHg (07/15/23 2:41 PM) Social History Social History Type Response Smoking Status Never smoked cigaret flaco Sex Female Patient Care team information Care Team Personnel Name: Yamileth Wolf Position: HIS Supervisor_P Member Role: HIS Lifetime Name: No, Referring Position: Referring Member Role: Primary Care Provider Address: Address: No Referring/Pcp Care Team Related Persons Name: VERN SALCEDO Address: home No Address Provided Name: VICETNE BARKER Address: home [address] [place] [phone]
--- OUTSIDE RECORDS SUMMARY | 2023-08-04 15:26 | External Medical Summary | Summary of Care ---
Author Name Unknown Organization [facility] Address [address] [place] [address] Phone [phone] Care Team Providers Care Service Order Dispatcher Chief Name Role Phone Staci Cisneros DO Primary Care Provider [phone] Reason for Visit * Reason Comments Acute Pre op for knee surg maura Encounter Details Date Type Department Care Team (Latest Contact Info) Description 07/26/2023 4:00 PM EST Office Visit [facility] [address] [place] [address] Vickie Brito MD [address] [place] [address] Preop examination*; Type 2 diabetes mellitus with hemoglobin A1c goal of less than 7.0% (HCC); DYSLIPIDEMIA, GOAL LDL BELOW 100; Acquired hypothyroidism; Mild obstructive sleep apnea; Metabolic syndrome; Fatty infiltration of liver; Osteoarthritis of both hips, unspecified osteoarthritis type; Primary osteoarthritis of left knee Allergies No known active allergiesdocumented as of this encounter (statuses as of 07/26/2023) Medications Medication Sig Dispensed Refills Start Date End Date Status ONE TOUCH LANCETS MISCIndications:DM type 2, not at goal (HCC) as directed once daily 1 box 3 05/22/2005 Active ONETOUCH ULTRA BLUE STRPIndications:DM type 2, goal A1c below 7 Use up to four times a day as directed 300 Strip 3 11/18/2011 Active METFORMIN HCL 1000 MG PO TABSIndications:DM type 2, goal A1c below 7 TAKE 1 TABLET TWICE A DAY WITH MEALS 270 Tab 3 10/18/2012 Active CYANOCOBALAMIN 1000 MCG PO TABS daily 0 Active VITAMIN D 2000 UNITS PO CAPS daily 0 Active HUMALOG KWIKPEN 100 UNIT/ML SUBQ SOPN as needed sliding scale 0 Active levothyroxine (LEVOXYL) 75 MCG Tablet Take 1 Tablet by mouth daily first thing in the morning. Everyday but Wednesday's 0 08/10/2015 Active Insulin Glargine (TOUJEO SOLOSTAR) 300 UNIT/ML SOPNIndications:Type 2 diabetes mellitus with hemoglobin A1c goal of less than 7.0% (HCC) Inject 35 Units under the skin in the morning and 35 Units before bedtime. Only takes 60 units at night only. 5 Pre-filled Pen Syringe Dosing Unit 0 07/29/2017 Active Vitamin E 400 units Tablet Take 1 Tablet by mouth in the morning. 2 tablets daily . 0 Active Lisinopril 2.5 MG Oral Tablet (Prinivil)Indications :Type 2 diabetes mellitus with hemoglobin A1c goal of less than 7.0% (HCC) TAKE 1 TABLET BY MOUTH DAILY 90 Tab 1 11/25/2020 Active Additional Information Patient taking differently: 5 mg Daily(AM), Reported on 07/23/2022 [employer] Formula Oral Capsule Take by mouth . 0 Active Diclofenac Sodium 1 % External Gel (Voltaren)Indications :Arthritis of carpometacarpal (CMC) joint of left thumb Apply topically to affected area 2 times a day . Apply to the left thumb area. 500 g 3 03/14/2022 Active CPAP every night at bedtime. 0 Active Mounjaro 12.5 MG/0.5ML Subcutaneous Solution Pen-injector (Tirzepatide)Indicati ons:BMI 38.0-38.9,adult Inject 12.5 mg under the skin once a week. 0 09/16/2022 Active Meloxicam 7.5 MG Oral TabletIndications:Chr onic pain of left knee Take 1 Tablet by mouth in the morning. for pain.. 90 Tablet 1 09/16/2022 Active valACYclovir HCl 1 GM Oral Tablet (Valtrex)Indications: Herpes simplex labialis TAKE 2 TABLETS BY MOUTH EVERY 12 HOURS FOR COLD SYMPTOMS FOR 1 DAY 4 Tablet 2 10/16/2022 Active valACYclovir HCl 1 GM Oral Tablet (Valtrex)Indications: Herpes simplex labialis TAKE 2 TABLETS BY MOUTH EVERY 12 HOURS FOR COLD SYMPTOMS FOR 1 DAY 4 Tablet 5 10/19/2022 Active Atorvastatin Calcium 80 MG Oral Tablet (Lipitor)Indications: Dyslipidemia, goal LDL below 70 Take 1 Tablet by mouth in the morning. 90 Tablet 3 03/26/2023 Active Phentermine HCl 37.5 MG Oral Tablet Take 1 Tablet by mouth in the morning. 0 06/24/2023 Active documented as of this encounter (statuses as of 07/26/2023) Active Problems Problem Noted Date Diagnosed Date Vitamin D deficiency 07/26/2023 Tinea pedis 07/26/2023 Tear of lateral meniscus of knee 07/26/2023 Tachycardia 07/26/2023 Renal colic 07/26/2023 Osteoarthritis of hips, bilateral 07/26/2023 Metabolic syndrome 07/26/2023 Mass of ovary 07/26/2023 Hydronephrosis concurrent wi th and due to calculi of kidney and ureter 07/26/2023 Fatty infiltration of liver 07/26/2023 Edema 07/26/2023 Cholecystitis with perforation of gallbladder Calculus of ureter 07/26/2023 Calcium oxalate calculus 07/26/2023 Osteoarthritis of left knee 07/15/2023 Calcific tendinitis of right shoulder 01/08/2023 Pilar cyst 06/16/2021 Inflammatory dermatosis 06/16/2021 Dexter angioma 06/16/2021 Multiple pigmented nevi 06/16/2021 Lentigines 07/04/2020 Atypical nevus 07/04/2020 Calculus of kidney 03/11/2019 Body mass index (BMI) of 40.0 to 44.9 in adult 1 Overview: Per Obesity protocol #1 - ICD-10 update of inactive term Hypothyroidism 07/04/2014 Mild obstructive sleep apnea 06/27/2014 Overview: CPAP 10 cwp 07/2014 PSG -- AHI 8.7, <89% 5.9 mins 2013 HST -- AHI 10 2012 HST -- AHI 7 AHP Acquired absence of both cervix and uterus 12/22 DYSLIPIDEMIA, GOAL LDL BELOW 100 05/27/2009 Overview: Per Lipid Taxonomy. Type 2 diabetes mellitus wit h hemoglobin A1c goal of less than 7.0% 04/11/2009 Overview: Per Diabetes Taxonomy. ICD-10 update of inactive term Submucous leiomyoma of uterus 02/19/2003 documented as of this encounter (statuses as of 07/26/2023) Resolved Problems Problem Noted Date Diagnosed Date Resolved Date Incisional hernia 07/11/2014 01/07/2018 ADVANCE DIRECTIVE INFORMATION 05/27/2012 08/05/2018 Overview: No, Advance Directive brochure given to patient. Body mass index (BMI) of 45.0-49.9 in adult 05/27/2012 03/18/2017 Overview: Per Obesity protocol #1 - ICD-10 update of inactive term Obesity, morbid (more than 1 00 lbs over ideal weight or BMI > 40) 09/10/2009 05/27/2012 Overview: Per Obesity Taxonomy ICD-10 update of inactive term Obesity, morbid (more than 1 00 lbs over ideal weight or BMI > 40) 09/10/2009 05/27/2012 Overview: Per Obesity Taxonomy ICD-10 update of inactive term Morbid Obesity, BMI not known 04/30/2008 09/10/2009 Overview: Per Obesity Taxonomy Type 2 diabetes mellitus wit h hemoglobin A1c goal of less than 7.0% 12/11/2005 04/11/2009 Overview: Per Diabetes Taxonomy. ICD-10 update of inactive term FAM HX-DIABETES MELLITUS 02/19/2003 OBESITY, UNSPECIFIED 02/19/2003 010 Overview: Per Obesity Taxonomy Mixed dyslipidemia 02/19/2003 9 Overview: Per Lipid Taxonomy. CONGENITAL HIP DYSPLASIA documented as of this encounter (statuses as of 07/26/2023) Immunizations Name Administration Dates Next Due COVID-19 mRNA, LNP-s, No Pre serve, 2-Dose Series (Pfizer) 10/24/2020,10/03/2020 H1N1 2009 Influenza, IM 08/09/2009 Hepatitis B, 20+ yrs 11/12/1992,07/15/1992,06/14 Pneumococcal Conjugate Vacci ne, 20-valent ([id number]) 03/14/2022 Pneumococcal Polysaccharide PPV23 (Pneumovax) 07/05/2006 Seasonal Influenza Virus Vac cine, Unspecified Formulation 03/11/2020,03/14/2019,03/18/2018,03/28,05/01/2016,03/01/2015,02/28/2014 ,03/22/2013,04/15/2012,04/28/2011,03/15,08/09/2009,02/28/2009, 8,05/17/2007,03/15/2006 Seasonal Influenza, PF, 6 M & above, IM , (FluLaval or Fluzone) 03/11/2020,03/18/2018,03/28/2017 Seasonal Influenza, Quad, Na crys (Flumist) 05/01/2016 Seasonal Influenza, Quadriva lent, No Preserve, IM 03/14/2019 Seasonal Influenza, Split, I IV3, With Preserve, Inj 03/01/2015,02/28/2014,03/22/2013,04/15,04/28/2011,04/07/2010,02/28/2009 ,04/17/2008,05/17/2007,03/15/2006 TD - Tetanus/Diptheria (ADULT) 07/29/2017 TD, Preservative Free 07/29/2017,03/10/1999 TDAP (age 11 and older)(Adacel) 05/17/2007 documented as of this encounter Social History Tobacco Use Types Packs/Day Years Used Date Smoking Tobacco: Never Smokeless Tobacco: Never Tobacco Cessation:Counseling Given: Not Answered Alcohol Use Standard Drinks/Week Comments Yes 0 (1 standard drink = 0.6 oz pur e alcohol) socially PHQ-2 Answer Date Recorded PHQ Adult Total Score 0 03/14/2022 Hunger Vital Sign Answer Date Recorded Within the past 12 months, y ou worried that your food would run out before you got the money to buy more. Never true 07/01/19 21 Within the past 12 months, t he food you bought just didn't last and you didn't have money to get more. Never true 07/01/2020 Sex and Gender Information Value Date Recorded Sex Assigned at Female 09/16/2022 8:22 AM EDT Gender Identity Female 09/16/2022 8:22 AM EDT Sexual Orientation Straight 07/14/2023 7: 05 PM EST Sexual Orientation Don't know 07/14/2023 7: 05 PM EST Job Start Date Occupation Industry Not on file Not on file Not on file documented as of this encounter Last Filed Vital Signs Vital Sign Reading Time Taken Comments Blood Pressure 126/62 07/26/2023 4:11 PM EST Pulse 86 07/26/2023 4:11 PM EST Temperature 36.6 C (97.8 F) 07/26/2023 4:11 PM ES T Respiratory Rate 16 07/26/2023 4:11 PM EST Oxygen Saturation 97% 07/26/2023 4:11 PM EST Inhaled Oxygen Concentration - - Weight 108.2 kg (238 lb 8 oz) 07/26/2023 4:11 PM EST Height - - Body Mass Index 37.88 09/16/2022 8:23 AM EDT documented in this encounter Functional Status Functional Status Response Date of Assess ment Are you deaf or do you have serious difficulty h earing? No 12/06/2017 Are you blind or do you have serious difficulty seeing, even when wearing glasses? No 12/06/2017 Do you have serious difficul ty walking or climbing stairs? (5 years old or older) No 12/06/2017 Do you have difficulty dress ing or bathing? (5 years old or older) No 12/06/2017 Because of a physical, menta l, or emotional condition, do you have difficulty doing errands alone such as visiting a doctor s office or shopping? (15 years old or older) No 12/07/19 18 Cognitive Status Response Date of Assessm ent Because of a physical, menta l, or emotional condition, do you have serious difficulty concentrating, remembering, or making decisions? (5 years old or older) No 12/06/2017 documented as of this encounter Progress Notes * Vickie Brito MD - 07/26/2023 4:18 PM EST Nursing Notes: Elizabeth Carter, [employer] 07/26/23 1617 Signed The patient has been properly identified by confirmation of name and date of . Chief Complaint Patient presents with Acute Pre op for knee surgery HPI: Jolanta Randhawa is a 53 year old female who is referred to me for pre operative exam. Denies recent fever, cough, or URI symptoms. Scheduling Notes: pre op L knee replacement 08/04/2023 Dr Donnelly [facility]. Arrival Time: 4:01 PM Anesthesia: local - spinal Past surgical history reviewed. Past Surgical History: Procedure Laterality Date CARPAL TUNNEL SURGERY Left 04/07/2021 NEUROPLASTY MEDIAN NERVE AT CARPAL TUNNEL performed by Andrés Zayas DO at OR [facility] COLONOSCOPY, DIAGNOSTIC (RECTUM) 07/24/2022 benign adenomatous polyps, diverticulosis, repeat 1 yr / COLONOSCOPY FLEXIBLE PROXIMAL DIAGNOSTIC performed by Sayra Vera MD at ENDOSCOPY [facility] DIABETIC EYE EXAM 2017 normal EX OF EXCES SKIN,ABDOM 12/06/2017 EXCISION EXCESSIVE SKIN AND SUBCUTANEOUS TISSUE INCLUDING LIPECTOMY ABDOMEN ABDOMINOPLASTY performed by Davion Rosado MD at [place] [facility] EXCISION EXCES SKIN,PANNICULECTOMY,INFRAUMB N/A 12/06/2017 EXCISION EXCESSIVE SKIN AND SUBCUTANEOUS TISSUE INCLUDING LIPECTOMY ABDOMEN INFRAUMBILICAL PANNICULECTOMY performed by Davion Rosado MD at [facility] IMPLANT MESH W/ ABD HERNIA REPR/DEBRIDE N/A 12/06/2017 IMPLANTATION MESH WITH INCISIONAL/VENTRAL HERNIA performed by Alton Guaman MD at [place] [facility] INFORMATION 09/03/2014 09/03/2014 laparoscopic ventral hernia repair with elliptical dual surgimesh [facility] [employer] 09/03/14 MYOMECTOMY,5>OR>250G;ABDOM AP 12/2003 [facility], Dr. Riojas PARTIAL HYSTERECTOMY 2013 both ovaries remain, and cervix. REMOVAL OF KIDNEY STONE Right laser 2021 REPAIR INITIAL INCISIONAL OR VENTRAL HERNIA; REDUCIBLE 09/23/2005 Laparoscopic repair of incisional hernia with dual mesh gore-icarra graft 09/23/05 REPAIR INITIAL INCISIONAL OR VENTRAL HERNIA; REDUCIBLE N/A 12/06/2017 REPAIR INITIAL INCISIONAL/VENTRAL HERNIA DUAL SERVICE performed by Alton Guaman MD at [facility] TOTAL HIP REPLACEMENT & PROSTHESIS 04/2002 Right, 04/2002, Dr Dexter. TOTAL HIP REPLACEMENT & PROSTHESIS 10/2005 Left, Dr. Dexter H/o complications from anesthesia: none known H/o snoring: FRANCOISE on CPAP - she is compliant Patient peritinent medical history includes: - heart failure: no - CVA/TIA: no - ischemic cardiac disease: no - renal insufficiency (Stock Cutter >2.0): no - diabetes requiring insulin: yes - well controlled _Significant past medical problems include: T2DM / HLD / hypothyroidism / metabolic syndr / mild FRANCOISE / NAFLD / h/o hydronephrosis and calculi of kidney and ureter Patient Active Problem List Diagnosis Code Submucous leiomyoma of uterus D25.0 Type 2 diabetes mellitus with hemoglobin A1c goal of less than 7.0% ([facility]) E11.9 DYSLIPIDEMIA, GOAL LDL BELOW 100 E78.5 Mild obstructive sleep apnea G47.33 Hypothyroidism E03.9 Body mass index (BMI) of 40.0 to 44.9 in adult ([facility]) Z68.41 Vitamin D deficiency E55.9 Tinea pedis B35.3 Tear of lateral meniscus of knee S83.289A Tachycardia R00.0 Renal colic N23 Pilar cyst L72.11 Osteoarthritis of left knee M17.12 Osteoarthritis of hips, bilateral M16.0 Metabolic syndrome E88.810 Mass of ovary N83.8 Lentigines L81.4 Calculus of kidney N20.0 Inflammatory dermatosis L98.9 Hydronephrosis concurrent with and due to calculi of kidney and ureter N13.2 Fatty infiltration of liver K76.0 Edema R60.9 Cholecystitis with perforation of gallbladder K82.A2 Dexter angioma D18.01 Calculus of ureter N20.1 Calcium oxalate calculus E83.59 Calcific tendinitis of right shoulder M75.31 Multiple pigmented nevi D22.9 Atypical nevus D22.9 Acquired absence of both cervix and uterus Z90.710 Past Medical History: Diagnosis Date DM type 2, goal A1c below 7 Hypothyroid on synthroid Mixed dyslipidemia Morbid Obesity, BMI not known OTHER 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 This patient's estimated functional capacity is >4 METS Current Outpatient Medications Medication Sig Dispense Refill ONE TOUCH LANCETS MISC as directed once daily 1 box 3 ONETOUCH ULTRA BLUE STRP Use up to four times a day as directed 300 Strip 3 METFORMIN HCL 1000 MG PO TABS TAKE 1 TABLET TWICE A DAY WITH MEALS 270 Tab 3 CYANOCOBALAMIN 1000 MCG PO TABS daily VITAMIN D 2000 UNITS PO CAPS daily HUMALOG KWIKPEN 100 UNIT/ML SUBQ SOPN as needed sliding scale levothyroxine (LEVOXYL) 75 MCG Tablet Take 1 Tablet by mouth daily first thing in the morning. Everyday but Wednesday's Insulin Glargine (TOUJEO SOLOSTAR) 300 UNIT/ML SOPN Inject 35 Units under the skin in the morning and 35 Units before bedtime. Only takes 60 units at night only. 5 Pre-filled Pen Syringe Dosing Unit 0 Vitamin E 400 units Tablet Take 1 Tablet by mouth in the morning. 2 tablets daily . Lisinopril 2.5 MG Oral Tablet (Prinivil) TAKE 1 TABLET BY MOUTH DAILY (Patient taking differently: 2 Tablets in the morning.) 90 Tab 1 Macular Health Formula Oral Capsule Take by mouth . Diclofenac Sodium 1 % External Gel (Voltaren) Apply topically to affected area 2 times a day . Apply to the left thumb area. 500 g 3 CPAP every night at bedtime. Mounjaro 12.5 MG/0.5ML Subcutaneous Solution Pen-injector (Tirzepatide) Inject 12.5 mg under the skin once a week. Meloxicam 7.5 MG Oral Tablet Take 1 Tablet by mouth in the morning. for pain.. 90 Tablet 1 valACYclovir HCl 1 GM Oral Tablet (Valtrex) TAKE 2 TABLETS BY MOUTH EVERY 12 HOURS FOR COLD SYMPTOMS FOR 1 DAY 4 Tablet 2 valACYclovir HCl 1 GM Oral Tablet (Valtrex) TAKE 2 TABLETS BY MOUTH EVERY 12 HOURS FOR COLD SYMPTOMS FOR 1 DAY 4 Tablet 5 Atorvastatin Calcium 80 MG Oral Tablet (Lipitor) Take 1 Tablet by mouth in the morning. 90 Tablet 3 Phentermine HCl 37.5 MG Oral Tablet Take 1 Tablet by mouth in the morning. No current facility-administered medications for this visit. Social History Socioeconomic History Marital status: Spouse name: Not on file Number of children: Not on file Years of education: Not on file Highest education level: Not on file Occupational History Not on file Tobacco Use Smoking status: Never Smokeless tobacco: Never Substance and Sexual Activity Alcohol use: Yes Comment: socially Drug use: No Sexual activity: Yes Partners: Male control/protection: Surgical Comment: Other Topics Concern Service Not Asked Blood Transfusions Not Asked Caffeine Concern Not Asked Occupational Exposure Not Asked Hobby Hazards Not Asked Sleep Concern Not Asked Stress Concern Not Asked Weight Concern Yes Comment: starting weight watchers with mother fall 2002 Special Diet Not Asked Back Care Not Asked Exercise Yes Comment: some weights, 30 min. treadmill Bike Helmet Not Asked Seat Belt Not Asked Self-Exams Not Asked Social History Narrative Lives [place], owns home Goes by [place]. . Lives with . No children. Works for [employer]. Stays local at the hospital. Social Determinants of Health Financial Resource Strain: Not on file Food Insecurity: No Food Insecurity (07/14/2023) Hunger Vital Sign Worried About Running Out of Food in the Last Year: Never true Ran Out of Food in the Last Year: Never true Transportation Needs: Not on file Physical Activity: Not on file Stress: Not on file Social Connections: Not on file Intimate Partner Violence: Not on file Housing Stability: Not on file ROS EXAM: CONSTITUTIONAL: No change in weight, No weakness, No fatigue, and No fevers, sweats, or chills PULMONARY: No cough, sputum, or hemoptysis, No wheezing, No rales, No shortness of breath, and No recent change in breathing CARDIOVASCULAR: No chest pain, No shortness of breath, No dyspnea on exertion, No orthopnea, No paroxysmal nocturnal dyspnea, No edema, No palpitations, and No syncope GASTROINTESTINAL: No abdominal pain, No change in bowel habits, No significant heartburn, No significant change in appetite, No nausea, vomiting, diarrhea, or constipation, No hematemesis, No blood in stools or black tarry stools, No abdominal bloating or early satiety, and No dysphagia HEMATOLOGIC: No coagulation disorder, No anemia, No abnormal bleeding, No chills, No bruising, No HIV risk factors, No night sweats, No swollen nodes, No weight loss, and No history of transfusion Filed Vitals: 07/26/23 1611 BP: 126/62 Pulse: 86 Resp: 16 Temp: 36.6 C (97.8 F) SpO2: 97% Weight: 108.2 kg (238 lb 8 oz) Physical Exam General: alert, healthy, no distress, and well nourished Head: Normocephalic, No masses, lesions, tenderness or abnormalities Eye Exam: normal, extraocular movements intact, conjunctiva are pink and non- injected, sclera clear Heart: regular rate & rhythm, no murmur, and no gallops Lungs: chest symmetric with normal AP diameter, no chest deformities noted, normal respiratory rateand rhythm, lungs clear to auscultation Abd: soft nontender normoactive bs no hsm Neck: no cervical or clavicular LAD B/l ASSESSMENT: Based upon this interview, examination and review of labwork (if relevant), patient is deemed a LOWrisk for complications of surgery. Currently medically optimized. Acceptable risk for surgery, may elect to proceed. Patient had adequate time to have questions answered and seemed satisfied with answers. Patient wasinvited to call back with any other concerns as they might arise prior to or after surgery. CC: referring physician Preop examination (Primary) Type 2 diabetes mellitus with hemoglobin A1c goal of less than 7.0% (HCC) DYSLIPIDEMIA, GOAL LDL BELOW 100 Acquired hypothyroidism Mild obstructive sleep apnea Metabolic syndrome Fatty infiltration of liver Osteoarthritis of both hips, unspecified osteoarthritis type Primary osteoarthritis of left knee documented in this encounter Nursing Notes * Elizabeth Carter LPN - 07/26/2023 4:17 PM EST The patient has been properly identified by confirmation of name and date of . Chief Complaint Patient presents with Acute Pre op for knee surgery documented in this encounter Plan of Treatment Upcoming Encounters Date Type Department Care Team (Late st Contact Info) Description 09/03/2023 3:30 PM EDT Imaging Radiology [address] [place] [address] Scheduled Procedures Name Priority Associated Diagnoses Date/Ti me COLONOSCOPY FLEXIBLE PROXIMAL DIAGNOSTIC Recall History of colon polyps Health Maintenance Due Date Last Done Comments HIV Screening 1987 TSH 10/02/2021 10/02/2020, 06/14, 03/07/2018, Additional history exists Zoster Vaccines (1 of 2) 2022 GFR 11/18/2022 11/18/2021 (Done elsewhere), 10/02/2020, 01/20/2019, Additional history exists COVID-19 Vaccine ( season) 2023 10/24/2020, 10/03/2020 Influenza Vaccine (FLU shot) (#1) 2023 03/11/2020, 03/11/2020, 03/14/2019, Additional history exists Depression Screening 03/14/2023 03/14/2022, 07/01/19 17 COLONOSCOPY-ANNUAL AGES 18-100 07/24/2023 07/24/2022, 07/24/2022 Mammogram 09/01/2023 08/31/2022, 08/12, 09/10/2020, Additional history exists Diabetic Eye Exam 12/02/2023 12/01/2022, , 09/06/2018, Additional history exists Lipid Panel 01/21/2024 01/20/2019, 02/13, 03/05/2017, Additional history exists Diabetic Foot Exam 03/26/2024 03/26/2023, 1 , 07/01/2020, Additional history exists DTaP,Tdap,and Td Vaccines (4 - Td or Tdap) 07/29/2027 07/29/2017, 07/29/2017, 05/17/2007, Additional history exists Hepatitis B Completed 11/12/1992, 06/1992, 06/14/1992 Hepatitis C Screening Completed 07/20/2012 Pap Smear Discontinued 08/17/2018, 05/16, 05/27/2012, Additional history exists Albumin/Creatinine Ratio Discontinued 021, 01/20/2019, 10/27/2017, Additional history exists HbA1c Discontinued 10/02/2020, 02/2019, 09/14/2018, Additional history exists Pneumococcal Vaccine: Pediatrics (0 to 5 Years) and At-Risk Patients (6 to 64 Years) Completed 03/14/2022, 07/05/2006 Colonoscopy Discontinued 07/24/2022, 07/24/2022 Colorectal Cancer Screening Discontinued Cologuard Discontinued Fecal Occult Blood Test Discontinued GARDASIL-HPV IMMUNIZATION SERIES Aged Out No longer eligible based on patient's age to complete this topic MENINGOCOCCAL (MENACTRA/MENVEO) Aged Out No longer eligible based on patient's age to complete this topic Sigmoidoscopy Discontinued documented as of this encounter Medical Devices Implanted 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 Device Identifier Shelf Expiration Date Model / Serial / Lot Bard Soft Mesh Implanted:Qty: 1 on 12/06/2017 by Alton Guaman MD at [place] [facility] N/A: Abdomen 08/11/2022 [id number] / / [id number] Duraclip 16mm [facility]lg [facility] - [id number] Implanted:Qty: 2 on 07/24/2022 by Sayra Vera MD at ENDOSCOPY [facility] [employer] 12/14/2023 [id number] / / documented as of this encounter Visit Diagnoses Diagnosis Preop examination- Primary Preoperative examination, unspecified Type 2 diabetes mellitus with hemoglobin A1c goal of less than 7.0% (HCC) DYSLIPIDEMIA, GOAL LDL BELOW 100 Other and unspecified hyperlipidemia Acquired hypothyroidism Unspecified hypothyroidism Mild obstructive sleep apnea Obstructive sleep apnea (adult) (pediatric) Metabolic syndrome Dysmetabolic Syndrome X Fatty infiltration of liver Other chronic nonalcoholic liver disease Osteoarthritis of both hips, unspecified osteoarthritis type Primary osteoarthritis of left knee Primary localized osteoarthrosis, lower leg documented in this encounter Advance Directives Documents on File Type Date Recorded Patient Engineering Drafter Expl anation Advance Directives and Living Will 01/17/2004 Latest Code Status on File Code Status Date Activated Date Inactivated Comments Full Code 12/06/2017 6:31 PM 12/09/2017 5:03 PM Question Answer Comments Discussion of Advance Direct bernie occurred with: Not Discussed Does the patient have a Living Will? No Does the patient have Health Care Power of Agile Tester? No Code Status History Code Status Date Activated Date Inactivated Comments None 01/10/2004 11:16 AM 01/10/2004 11:16 AM Care Teams Service Order Dispatcher Chief Relationship Specialty Start Date End Date Staci Cisneros DO [address] [place] [address] PCP - General Family Medicine 08/05/18 documented as of this encounter
--- OUTSIDE RECORDS SUMMARY | 2023-08-04 15:26 | External Medical Summary | Summary of Care ---
Author Name Unknown Organization [facility] Address [address] [place] [address] Phone [phone] Care Team Providers Care Senior Software Development Engineer Name Role Phone Staci Cisneros DO Primary Care Provider Reason for Visit * Reason Comments Acute Pre op for knee surg maura Encounter Details Date Type Department Care Team (Latest Contact Info) Description 07/26/2023 4:00 PM EST Office Visit [facility] [address] [place] [address] Vickie Brito MD [address] [place] [address] Preop examination*; Type 2 diabetes [...] differently: 5 mg Daily(AM), Reported on 07/23/2022 [facility] Formula Oral Capsule Take by mouth [...] yrs 11/12/1992,07/15/1992,06/14 Pneumococcal Conjugate Vacci ne, 20-valent ([id number]) 03/14/2022 Pneumococcal Polysaccharide PPV23 (Pneumovax) 07/05/2006 Seasonal [...] 4:18 PM EST Nursing Notes: Elizabeth Carter, ARCHITECTURAL DRAFTSMAN 07/26/23 1617 Signed The patient has been properly identified by confirmation of name and date of . Chief Complaint Patient presents with Acute Pre op for knee surgery HPI: Jolanta Randhawa is a 53 year old female who is referred to me for pre operative exam. Denies recent fever, cough, or URI symptoms. Scheduling Notes: pre op L knee replacement 08/04/2023 Dr Donnelly [facility]. Arrival Time: 4:01 PM Anesthesia: local - spinal Past surgical history reviewed. Past Surgical History: Procedure Laterality Date CARPAL TUNNEL SURGERY Left 04/07/2021 NEUROPLASTY MEDIAN NERVE AT CARPAL TUNNEL performed by Andrés Zayas DO at OR [facility] COLONOSCOPY, DIAGNOSTIC (RECTUM) 07/24/2022 benign adenomatous polyps, diverticulosis, repeat 1 yr / COLONOSCOPY FLEXIBLE PROXIMAL DIAGNOSTIC performed by Sayra Vera MD at ENDOSCOPY [facility] DIABETIC EYE EXAM 2017 normal EX OF EXCES SKIN,ABDOM 12/06/2017 EXCISION EXCESSIVE SKIN AND SUBCUTANEOUS TISSUE INCLUDING LIPECTOMY ABDOMEN ABDOMINOPLASTY performed by Davion Rosado MD at OR [facility] EXCISION EXCES SKIN,PANNICULECTOMY,INFRAUMB N/A 12/06/2017 EXCISION EXCESSIVE SKIN AND SUBCUTANEOUS TISSUE INCLUDING LIPECTOMY ABDOMEN INFRAUMBILICAL PANNICULECTOMY performed by Davion oRsado MD at [facility] IMPLANT MESH W/ ABD HERNIA REPR/DEBRIDE N/A 12/06/2017 IMPLANTATION MESH WITH INCISIONAL/VENTRAL HERNIA performed by Alton Guaman MD at OR [facility] INFORMATION 09/03/2014 09/03/2014 laparoscopic ventral hernia repair with elliptical dual surgimesh [facility] 09/03/14 MYOMECTOMY,5>OR>250G;ABDOM AP 12/2003 [facility], Dr. Riojas PARTIAL HYSTERECTOMY 2013 both ovaries remain, and cervix. REMOVAL OF KIDNEY STONE Right laser 2021 REPAIR INITIAL INCISIONAL OR VENTRAL HERNIA; REDUCIBLE 09/23/2005 Laparoscopic repair of incisional hernia with dual mesh gore-ciarra graft 09/23/05 REPAIR INITIAL INCISIONAL OR VENTRAL HERNIA; REDUCIBLE N/A 12/06/2017 REPAIR INITIAL INCISIONAL/VENTRAL HERNIA DUAL SERVICE performed by Alton Guaman MD at [facility] TOTAL HIP REPLACEMENT & PROSTHESIS 04/2002 Right, 04/2002, Dr Dexter. TOTAL HIP REPLACEMENT & PROSTHESIS 10/2005 Left, Dr. 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): no - diabetes requiring insulin: yes - well controlled _Significant past medical problems include: T2DM / HLD / hypothyroidism / metabolic syndr / mild FRANCOISE / NAFLD / h/o hydronephrosis and calculi of kidney and ureter Patient Active Problem List Diagnosis Code Submucous leiomyoma of uterus D25.0 Type 2 diabetes mellitus with hemoglobin A1c goal of less than 7.0% ([facility]) E11.9 DYSLIPIDEMIA, GOAL LDL BELOW 100 E78.5 Mild obstructive sleep apnea G47.33 Hypothyroidism E03.9 Body mass index (BMI) of 40.0 to 44.9 in adult ([facility]) Z68.41 Vitamin D deficiency E55.9 Tinea pedis [...] Description 09/03/2023 3:30 PM EDT Imaging Radiology [address] [place] [address] Scheduled Procedures Name Priority Associated Diagnoses Date/Ti [...] this encounter Medical Devices Implanted Type Area Memorial Designer Device Identifier Shelf Expiration Date Model / Serial / Lot Bard Soft Mesh Implanted:Qty: 1 on 12/06/2017 by Alton Guaman MD at OR [facility] N/A: Abdomen 08/11/2022 [id number] / / [id number] Duraclip 16mm Xlg [facility] - [id number] Implanted:Qty: 2 on 07/24/2022 by Sayra Vera MD at ENDOSCOPY [facility] [employer] [place] 12/14/2023 [id number] / / documented as of this encounter [...] Documents on File Type Date Recorded Patient Clinical Laboratory Aide Expl anation Advance Directives and Living Will 01/17/2004 Latest Code Status on File Code Status Date Activated Date Inactivated Comments Full Code 12/06/2017 6:31 PM 12/09/2017 5:03 PM Question Answer Comments Discussion of Advance Direct bernie occurred with: Not Discussed Does the patient have a Living Will? No Does the patient have Health Care Power of Tire Bagger? No Code Status History Code Status Date Activated Date Inactivated Comments None 01/10/2004 11:16 AM 01/10/2004 11:16 AM Care Teams Senior Software Development Engineer Relationship Specialty Start Date End Date Staci Cisneros DO [address] [place] [address] PCP - General Family Medicine 08/05/18 documented as of this encounter
--- OUTSIDE RECORDS SUMMARY | 2023-08-04 15:26 | External Medical Summary | Summary of Care ---
Author Name Unknown Organization [facility] Address [address] [place] [address] Phone [phone] Care Team Providers Care Admissions Manager Rn Name Role Phone Staci Cisneros DO Primary Care Provider [phone] Reason for Visit * Reason Onset Date Comments Procedure 07/22/2023 Encounter Details Date Type Department Care Team (Late st Contact Info) Description 07/22/2023 Telephone Access Center, [place] [address] [facility] *DO NOT REMOVE THIS DEPARTMENT* [place] [address] Services, Scheduling [address] [place] [address] Procedure Allergies No known active allergiesdocumented as of this encounter (statuses as of 07/22/2023) Medications Medication Sig Dispensed Refills Start Date [...] differently: 5 mg Daily(AM), Reported on 07/23/2022 [facility] Formula Oral Capsule Take by [...] the morning. 90 Tablet 3 03/26/2023 Active documented as of this encounter (statuses as of 07/22/2023) Active Problems Problem Noted Date Diagnosed Date Body mass index (BMI) of 40.0 to 44.9 in adult 1 Overview: Per Obesity protocol #1 - ICD-10 update of inactive term Hypothyroidism 07/04/2014 Mild obstructive sleep apnea 06/27/2014 Overview: CPAP 10 cwp 07/2014 PSG -- AHI 8.7, <89% 5.9 mins 2013 HST -- AHI 10 2012 HST -- AHI 7 AHP DYSLIPIDEMIA, GOAL LDL BELOW 100 05/27/2009 Overview: Per Lipid Taxonomy. Type 2 diabetes mellitus wit h hemoglobin A1c goal of less than 7.0% 04/11/2009 Overview: Per Diabetes Taxonomy. ICD-10 update of inactive term documented as of this encounter (statuses as of 07/22/2023) Resolved Problems Problem Noted Date Diagnosed Date [...] Overview: Per Obesity Taxonomy Mixed dyslipidemia 02/19/2003 12/200 9 Overview: Per Lipid Taxonomy. Uterine leiomyoma 02/19/2003 08/05/2018 CONGENITAL HIP DYSPLASIA documented as of this encounter (statuses as of 07/22/2023) Immunizations Name Administration Dates Next Due COVID-19 mRNA, LNP-s, No Pre serve, 2-Dose Series (TruQC) 10/24/2020,10/03/2020 H1N1 2008 Influenza, IM 08/09/2009 Hepatitis B, 20+ yrs 11/12/1992,07/15/1992,06/14 Pneumococcal Conjugate Vacci ne, 20-valent ([id number]) 03/14/2022 Pneumococcal Polysaccharide PPV23 (Pneumovax) 07/05/2006 Seasonal Influenza, PF, 6 M & above, IM , (FluLaval or Fluzone) 03/11/2020,03/18/2018,03/28/2017 Seasonal Influenza, Quad, Na crys (Flumist) 05/01/2016 Seasonal Influenza, Quadriva lent, No Preserve, IM 03/14/2019 Seasonal Influenza, Split, I IV3, With Preserve, Inj 03/01/2015,02/28/2014,03/22/2013,04/15,04/28/2011,04/07/2010,02/28/2009 ,04/17/2008,05/17/2007,03/15/2006 TD, Preservative Free 07/29/2017 TDAP (age 11 and older)(Adacel) 05/17/2007 documented as of this encounter Social History Tobacco Use Types Packs/Day Years Used Date Smoking Tobacco: Never Smokeless Tobacco: Never Alcohol Use Standard Drinks/Week Comments Yes 0 [...] on file documented as of this encounter Functional Status Functional Status Response [...] No 12/06/2017 documented as of this encounter Miscellaneous Notes * Telephone Encounter - Krysten Muñoz OSA - 07/22/2023 5:48 PM EST Left message with pt, states she will call back to reschedule. * Telephone Encounter - Deonna Higginbotham OSA - 07/22/2023 4:03 PM EST Patient needs to cancel her procedure scheduled for 08/11/[address] Orosco. She would liketo reschedule this appointment for a future date. She is having Knee surgery but wants to have something scheduled for her Colonoscopy. Please return call to patient. documented in this encounter Plan of Treatment Upcoming Encounters Date Type Department Care Team (Late st Contact Info) Description 07/26/2023 4:00 PM EST Office Visit [facility] [address] [place] [address] Vickie Brito MD [address] [place] [address] 09/03/2023 3:30 PM EDT Imaging Radiology [address] [facility] [place] [address] Scheduled Procedures Name Priority Associated Diagnoses Date/Ti [...] Influenza Vaccine (FLU shot) (#1) 2023 03/11/2020, 03/14/2019, 03/18/2018, Additional history exists Depression Screening 03/14/2023 03/14/2022, 07/01/19 17 COLONOSCOPY-ANNUAL AGES 18-100 07/24/2023 07/24/2022, 07/24/2022 Mammogram 09/01/2023 08/31/2022, 08/12, 09/10/2020, Additional history exists Diabetic Eye Exam 12/02/2023 12/01/2022, , 09/06/2018, Additional history exists Lipid Panel 01/21/2024 01/20/2019, 02/13, 03/05/2017, Additional history exists Diabetic Foot Exam 03/26/2024 03/26/2023, 1 , 07/01/2020, Additional history exists DTaP,Tdap,and Td Vaccines (3 - Td or Tdap) 07/29/2027 07/29/2017, 05/17/2007, 03/10/1999, Additional history exists Hepatitis B Completed 11/12/1992, [...] this encounter Medical Devices Implanted Type Area Aquaculture Farm Manager Device Identifier Shelf Expiration Date Model / Serial / Lot Bard Soft Mesh Implanted:Qty: 1 on 12/06/2017 by Alton Guaman MD at [place] [facility] N/A: Abdomen 08/11/2022 [id number] / / [id number] Duraclip 16mm Xlg [employer] - [id number] Implanted:Qty: 2 on 07/24/2022 by Sayra Vera MD at [facility]COPY [facility] [employer] [place] 12/14/2023 [id number] / / documented as of this encounter Advance Directives Documents on File Type Date Recorded Patient Carpet Renovator Expl anation Advance Directives and Living Will 01/17/2004 Latest Code Status on File Code Status Date Activated Date Inactivated Comments Full Code 12/06/2017 6:31 PM 12/09/2017 5:03 PM Question Answer Comments Discussion of Advance Direct bernie occurred with: Not Discussed Does the patient have a Living Will? No Does the patient have Health Care Power of Baker Bench? No Code Status History Code Status Date Activated Date Inactivated Comments None 01/10/2004 11:16 AM 01/10/2004 11:16 AM Care Teams Admissions Manager Rn Relationship Specialty Start Date End Date Staci Cisneros DO [address] [place] [address] PCP - General Family Medicine 08/05/18 documented as of this encounter
[2023-08-04] MEDS: FERROUS GLUCONATE 324 MG TAB PO SCH (17:31)
[2023-08-04] MEDS: ASCORBIC ACID 500 MG TAB PO SCH (17:31)
[2023-08-04] MEDS: DOCUSATE SODIUM 100 MG CAP PO SCH (20:43)
[2023-08-04] MEDS: SENNA 8.6 MG TAB PO SCH (20:43)
[2023-08-04] MEDS: ATORVASTATIN 40 MG TAB PO SCH (20:43)
[2023-08-04] MEDS: ONDANSETRON INJ 2 MG/ML 2 ML VIAL IV PRN (21:08)
[2023-08-04] MEDS: LANTUS PER UNIT CHARGE SC SCH (21:10)
[2023-08-04] MEDS: HYDROmorphone INJ 0.5 MG/0.5 ML SYR IV PRN (22:06)
[2023-08-05] MEDS: LEVOTHYROXINE SODIUM 75 MCG TABLET PO SCH (05:33)
--- NOTE | 2023-08-05 06:28 | Orthopedic Progress Note ---
Date of Service August 05, 2023 Assessment & Plan Admission and Anticipated Discharge Date Admission Date: August 04, 2023 Orthopedic Progress Note Postop day #1 status post left total knee replacement. She is resting comfortably. She denies any chest pain shortness of breath fever chills nausea vomiting or headache. Vital signs are stable she is afebrile. Neurovascular check femoral sciatic nerve is normal can do a straight leg raise. Calves are nontender. A.m. labs are pending. Assessment doing well status post left total knee replacement. Discharged home after PT OT with services. Begin anticoagulation 24 hours postop to later today. Follow-up in 2 weeks. Instructed to call the office if she has any questions.
[2023-08-05 06:58] LABS: Hematocrit (blood only) 32.3 % (37.0-47.0); Hemoglobin 10.6 g/dl (12.0-16.0); Mean Corpuscular Hemoglobin 28.4 pg (25.0-34.0); Mean Corpuscular Hgb Conc 32.8 g/dL (32.0-36.0); Mean Corpuscular Volume 86.6 fL (80.0-100.0); Mean Platelet Volume 10.6 fL (9.4-12.4); Platelet Count 156 K/uL (130-400); RDW Coefficient of Variation 13.3 % (11.5-14.5); Red Blood Count 3.73 M/uL (4.20-5.40); White Blood Count 7.96 K/ul (4.8-10.8)
[2023-08-05 07:19] LABS: BUN Creatinine Ratio 28.3 (10-20); Calcium 8.7 mg/dl (8.6-10.3); Creatinine Clr Calc Pharmacy 159.5 ml/min; Est GFR (African American) 127.4 ml/min; Est GFR (Non-African American) 109.9 ml/min; Potassium 4.1 mmol/L (3.5-5.1)
[2023-08-05] MEDS: APIXABAN 2.5 MG TAB PO SCH (08:08)
[2023-08-05] MEDS: MULTIVITAMIN TAB PO SCH (08:09)
[2023-08-05] MEDS: lisinopril 5 MG TAB PO SCH (08:10)
--- NOTE | 2023-08-05 09:17 | Orthopedic Progress Note ---
Date of Service August 05, 2023 Assessment & Plan (1) Status post left knee replacement: Plan: The patient was educated regarding today's findings. Conservative care measures were discussed. His postsurgical dressings were changed by me and the Kurt stocking was applied. This will remain in place through the weekend. It can be changed on Wednesday by home health as needed for soiling. Eliquis was started this morning. Continue twice a day for 4 weeks. Prescriptions for Eliquis and Percocet will be sent to his pharmacy this morning. Continue with ice, elevation, and use of the compressive Kurt stocking. Use the knee immobilizer when out of bed today and tomorrow. Discontinue entirely on Wednesday. Follow-up in the office in 2 weeks as scheduled for staple removal. Written discharge instructions were provided. 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 She will still have home physical therapy. Call the office with any other concerns. Admission and Anticipated Discharge Date Admission Date: August 04, 2023 Subjective This 53-year-old female is seen this morning in her room. She is postop day 1 from left total knee arthroplasty. She states her pain is currently controlled. She feels ready to go home. She did not sleep well last night due to interru ptions. She denies any chest pain, shortness of breath, nausea, vomiting, abdominal pain, or back pain. Her worst discomfort is at the proximal thigh, in the area of her surgical tourniquet. Denies any numbness or tingling. She has been out of bed. She is currently waiting for PT/OT. Review of Systems Review of Systems: Unchanged from yesterday. Physical Exam Physical Exam: General: Well-developed, well-nourished, middle-aged female, in no acute distress. Laying in bed. Alert and oriented. Skin: Warm and dry with good turgor. No rashes. Postsurgical dressing is in place on the left knee. Upon removal, she has expected postoperative ecchymosis and edema. Majo are intact. Wound edges are well-approximated. She has no active bleeding. There is scant dried blood on her inner dressings. Musculoskeletal: The patient has intact motor function of her hip, knee, ankle, and toes. She is unable to perform straight leg raise. She can set her quad. Neurologic: Gross sensation is intact across the left leg but soft touch. Peripheral pulses are 2+. Results & Data Vital Signs (Past 12 Hours) Vital Signs Temp Pulse Pulse Resp BP Pulse Ox O2 Del Method 08/05/23 07:36 37.0 C 84 16 137/83 95 Room Air 08/05/23 03:26 37.0 C 82 18 135/82 96 Room Air 08/04/23 22:57 37.3 C 89 16 138/82 96 Room Air Laboratory Results CBC obtained this morning shows a white count of 7.96. H&H of 10.6 and 32.3. Platelets 156,000. PRP this morning shows sodium 135, potassium 4.1, chloride 104. Anion gap of 5. BUN 15, creatinine 0.53. Glucose this morning is 188.
== END 2023-08-05 11:41 | disposition home or self-care (01) ==
LOC: ASU 05:18 → 3E 05:18